=== PATIENT | male | born 1940 | race Caucasian/White ===

== ENCOUNTER 2019-06-23 19:21 | Inpatient (IN) | payer MEDICARE, OTHER ==
[2019-06-23 22:58] VITALS: BP 151/76
[2019-06-23] MEDS ORDERED: Maalox 30 mL Cup PO PRN (23:49)
[2019-06-24] MEDS ORDERED: Magnesium Hydroxide (MOM) 30 mL UDC PO PRN ×2 (11:03→15:31)
[2019-06-24] MEDS ORDERED: Maalox 30 mL Cup PO PRN (11:03)
[2019-06-24] MEDS ORDERED: Potassium Chloride 20 mEq ER Tab PO ONE ×2 (11:39→13:15)
[2019-06-24] MEDS ORDERED: Fleet Enema 135 mL RC PRN ×2 (11:47→15:31)
--- NOTE | 2019-06-24 11:49 | Psychiatric Evaluation ---
DATE OF SERVICE: REASON FOR ADMISSION: The patient was admitted for increased depression with increased aggressive behavior and refusing care. HISTORY OF PRESENT ILLNESS: The patient is a 79-year-old male who appeared to be somewhat poor of a historian. The patient is a resident of the [facility] in [place]. The patient was able to give his name and age; however, the patient was able to give the month and day of his birthday, but not the year. When asked again what is the year of his birthday, the patient stated "I am 79, you can figure it out." When asked why he is here, the patient stated that he does not have any idea why he is here. When asked if he is depressed, the patient stated that he is depressed after he got here. When asked to rate his mood on a 0-10 scale, 0 being normal happy, 10 being very depressed and suicidal and the patient stated "15." When asked again later to rate his mood, the patient gave the same answer. The patient was not able to say why he is depressed. The patient denied any problem at the facility. The patient stated that he would like to go back to where he came from. The patient reported that he is eating and sleeping okay. PAST PSYCHIATRIC HISTORY: History of depression and agitation and being uncooperative with care and treatment. PAST MEDICAL HISTORY: GI bleed, anemia, ulcerative colitis, heart failure, COPD, hyperlipidemia, hypertension, generalized muscle weakness. PAST SURGICAL HISTORY: The patient denied any surgery. ALLERGIES: No known allergy. MEDICATIONS: Currently, the patient is on Sinemet, Wellbutrin 100 mg p.o. daily, Ativan 0.5 mg q. 4 hours p.r.n., Ambien 5 mg p.o. at bedtime p.r.n. SUBSTANCE ABUSE HISTORY: The patient denied any alcohol use, but reported that he smoked for about 30 years. PERSONAL HISTORY: The patient reported that he is still only child. The patient reported that he finished 4 years of college, has a bachelor degree. 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 MENTAL STATUS EXAMINATION: The patient appeared appropriate for stated age. The patient appeared to be somewhat guarded; however, the patient did have some sense of humor. When asked if he has any auditory or visual hallucination, the patient stated all the time and then, the patient smiled. Then, the patient denied any other symptoms. The patient also denied any delusion. Short-term memory appeared to be adequate. The patient was able to repeat the 4 items; however, the patient was unable to recall any of the 4 items after a couple of minutes. The patient was unable to recall any even after given hints. The patient gave concrete interpretation to 2/3 proverbs and stated that he had never heard one of them. Concentration appeared to be adequate; however, when asked the patient to perform serial 3 subtraction taking 3 from 20, the patient stated "I don't know." DIAGNOSTIC IMPRESSION: AXIS I: 1. Alzheimer dementia with depressed mood and behavioral disturbance. 2. Mood disorder, depressed due to medical condition. 3. Major depressive disorder. 4. Impulse control disorder, not otherwise specified. 5. Personality change due to medical condition. PLAN: We will continue the patient on current Wellbutrin and monitor the patient's mood and behavior. Consider increasing Wellbutrin to 300 mg daily and possibly adding Depakote 125 mg q. 12 hours for poor impulse control. We will get psychology consult with Dr. Waldrop. ESTIMATED LENGTH OF STAY: 7-10 days. DISCHARGE CRITERIA: Include improvement of his depressed mood as well as no recurrent aggressive behavior and increased compliance with care and treatment. [facility]# [id number]
[2019-06-24] MEDS ORDERED: Acetaminophen 500 MG TAB PO PRN ×2 (11:53→15:31)
[2019-06-24] MEDS ORDERED: Potassium Chloride 20 mEq ER Tab PO SCH (12:00)
[2019-06-24] MEDS ORDERED: Pantoprazole 40 mg EC Tab PO PRN (15:31)
[2019-06-24] MEDS ORDERED: GLUCAGON HCl 1 MG KIT IM PRN (15:31)
[2019-06-24] MEDS: INSULIN LISPRO SLIDING SCALE 100 UNITS/ML UNIT SUBQ SCH ×2 (16:33→21:49)
[2019-06-25] MEDS: INSULIN LISPRO SLIDING SCALE 100 UNITS/ML UNIT SUBQ SCH ×4 (06:47→21:55)
[2019-06-25] MEDS: Potassium Chloride 10 mEq ER Tab PO SCH (08:50)
[2019-06-25] MEDS: Pantoprazole 40 mg/Packet PO SCH (08:51)
[2019-06-25] MEDS: Multivitamin Tab PO SCH (08:51)
[2019-06-25] MEDS: Aspirin 81mg Chewable Tab PO SCH (08:52)
[2019-06-25] MEDS ORDERED: Aspirin 81mg Chewable Tab PO SCH (09:00)
[2019-06-25] MEDS ORDERED: Multivitamin Tab PO SCH (09:00)
[2019-06-25] MEDS ORDERED: FOLIC ACID PO SCH (09:00)
[2019-06-25] MEDS ORDERED: RIBOFLAVIN PO SCH (09:00)
[2019-06-25] MEDS ORDERED: CYANOCOBALAMIN PO SCH (09:00)
[2019-06-25] MEDS ORDERED: PYRIDOXINE PO SCH (09:00)
[2019-06-25] MEDS ORDERED: CHOLECALCIFEROL PO SCH (09:00)
--- NOTE | 2019-06-25 14:00 | Internal Medicine Prog Note ---
Internal Medicine Subjective - Subjective Patient seen and examined:: with staff, chart reviewed Patient is:: awake, verbal, interactive Per staff patient has:: no adverse event, no episodes of fall, tolerating meds Internal Medicine Objective - Results Recent Labs: Laboratory Last Values POC Glucose 103 MG/DL (70 - 105) 06/25/19 06:44 - Physical Exam Vitals and I&O: Vital Signs Temp 96.5 F 06/25/19 06:39 Pulse 58 06/25/19 06:39 Resp 18 06/25/19 07:32 BP 138/65 06/25/19 08:50 Pulse Ox 94 06/25/19 06:39 Intake & Output 06/24/19 06/25/19 06/25/19 18:59 06:59 18:59 Intake Total 120 120 Output Total 1 Balance 120 119 Intake: Oral 120 120 Output: Urine/Stool Mix 1 Other: # Voids 2 1 # Bowel Movements 0 1 Active Medications: Current Medications Acetaminophen (Tylenol) 650 mg PO Q4H PRN PRN Reason: Pain (Mild 1-3) Stop: 08/23/19 11:02 Acetaminophen (Tylenol Extra Strength) 500 mg PO Q6HR PRN PRN Reason: FEVER Stop: 08/23/19 15:30 Al Hydrox/Mg Hydrox/Simethicone (Maalox) 30 ml PO Q4HR PRN PRN Reason: GI DISTRESS Stop: 08/22/19 23:48 Aspirin (Aspirin Chewable) 81 mg PO DAILY [facility] Stop: 08/24/19 08:59 Last Admin: 06/25/19 08:52 Dose: 81 mg Bisacodyl (Dulcolax 10 Mg Supp) 10 mg RC DAILY PRN PRN Reason: Constipation Stop: 08/23/19 15:30 Bupropion HCl (Wellbutrin Sr) 150 mg PO DAILY [facility]; Protocol Stop: 08/25/19 08:59 Dextrose (Glutose 40%) 18.75 gm PO PRN PRN PRN Reason: Blood Glucose less than 70 Stop: 08/23/19 15:30 Docusate Sodium (Colace) 200 mg PO DAILY [facility] Stop: 08/24/19 08:59 Last Admin: 06/25/19 08:51 Dose: 200 mg Furosemide (Lasix) 40 mg PO DAILY [facility] Stop: 08/24/19 08:59 Last Admin: 06/25/19 08:50 Dose: 40 mg Glucagon (Glucagen) 1 mg IM PRN PRN PRN Reason: Blood Glucose less than 70 Stop: 08/23/19 15:30 Insulin Human Lispro (Humalog Insulin Sliding Scale) 0 units SUBQ ACHS [facility]; Protocol Stop: 08/23/19 16:29 Last Admin: 06/25/19 11:30 Dose: Not Given Lorazepam (Ativan) 0.5 mg PO Q4HR PRN; Protocol PRN Reason: Agitation Stop: 07/23/19 23:48 Magnesium Hydroxide (Milk Of Magnesia) 30 ml PO DAILY PRN PRN Reason: Constipation Stop: 08/23/19 15:30 Miscellaneous (Vit D3/Folic Acid/B2/B6/B12 [Folgard Tablet]) 1,000 unit PO DAILY [facility] Stop: 08/24/19 08:59 Multivitamins/Vitamin C (Theragran) 1 tab PO DAILY [facility] Stop: 08/24/19 08:59 Last Admin: 06/25/19 08:51 Dose: 1 tab Niacin (Vitamin B3) 1,000 mg PO QAM [facility] Stop: 08/24/19 08:59 Last Admin: 06/25/19 08:50 Dose: 1,000 mg Nitroglycerin (Nitrostat) 0.4 mg SL Q5MIN PRN PRN Reason: Chest Pain Stop: 08/23/19 15:30 Pantoprazole Sodium (Protonix) 40 mg PO DAILY [facility] Stop: 08/24/19 08:59 Last Admin: 06/25/19 08:51 Dose: 40 mg Potassium Chloride (Klor-Con) 10 meq PO DAILY [facility] Stop: 08/24/19 08:59 Last Admin: 06/25/19 08:50 Dose: 10 meq Simvastatin (Zocor) 20 mg PO HS [facility]; Protocol Stop: 08/23/19 20:59 Last Admin: 06/24/19 21:08 Dose: 20 mg Sodium Phosphate (Fleet Enema) 135 ml RC PRN PRN PRN Reason: Consipation if Dulcolax ineffe Stop: 08/23/19 15:30 Zolpidem Tartrate (Ambien) 5 mg PO HS PRN PRN Reason: Insomnia Stop: 08/22/19 23:48 General: demented HEENT: NC/AT, PERRLA Neck: Supple, No JVD Lungs: CTAB Cardiovascular: RRR, Normal S1, Normal S2, with murmur Abdomen: soft, globular, positive bowel sound Extremities: excoriation Neurological: no change Internal Medicine Assmt/Plan - Assessment Assessment: history of chf hyperlipidemia gerd - Plan Plan: cont on diuretics monitor lytes, will correct as needed cont on proton pump inhibitor cpm ondina rn Nutritional Asmnt/Malnutr-PDOC - Dietary Evaluation Malnutrition Findings (Please click <Entered> for more info): Nutritional Asmnt/Malnutrition Start: 06/25/19 10: 36 Text: Status: Complete Freq: Protocol: Document 06/25/19 10:36 [email or web address] (Rec: 06/25/19 10:42 [id number] MARTIN- [email or web address]) Nutritional Asmnt/Malnutrition Patient General Information Nutritional Screening Moderate Risk Diagnosis Psychosis Pertinent Medical Hx/Surgical Hx Major depression Ds, dementia, HTN, hyperlipidemia, CT, CAD, CHF, COPD, anemia, ulcerative colitis unspecified rectal bleeding, muscle weakness, difficulty walking, left hand weakness, hx CABG Subjective Information Patient was admitted from [facility] for evaluation related to increased depression, withdrawn, refusal of treatment and care, verbally agressive to staff. Tolerating current diet with adequate intake. Patient asleep in bed at time of visit. Current Diet Order/ Nutrition Support Mechanical soft, 2gm Sodium, Chopped Patient / S.O Not Indicated Pertinent Medications maalox, dulcolax, colace, lasix, glucagon, humalog, MOM, Theragran, Vitamin B3, protonix, klor con, fleet enema Pertinent Labs 06/23 glucose 193 Nutritional Hx/Data Height 1.78 m Height (Calculated Centimeters) 177.8 Current Weight (lbs) 113.398 kg Weight (Calculated Kilograms) 113.4 Weight (Calculated Grams) 455077.1 [place] Body Weight 166 % [place] Body Weight 150 Body Mass Index (BMI) 35.9 Recent Weight Change No Weight Status Obese GI Symptoms GI Symptoms None Last BM 06/24 x 1 Difficult in: None Food Allergies No Cultural/Ethnic/Oriental Orthodox Belief none indicated Usual diet at home unknown Skin Integrity/Comment: area of concern, dry scabs bilateral LE, Mickey 16 Current %PO Good (75-100%) Estimated Nutritional Goals BEE in Kcals: Adj wt of IBW Calories/Kcals/Kg Adj BW 85kg Kcals Calculated ~2537-3457 kcal/day (25-30 kcal/kg) Protein: Adj wt of IBW Protein g/k-1.2 gm/kg Protein Calculated ~85-100gm/day Fluid: ml ~2879-1317 ml/day Nutritional Problem No current Nutrition Prob Problem No nutrition diagnosis at this time Intervention/Recommendation Comments 1. Continue current diet as tolerated by patient. Expected Outcomes/Goals Expected Outcomes/Goals Oral intake >75% of meals, weight stable or trend toward IBW, nutrition related labs WNL F/U LR 07/02
--- NOTE | 2019-06-25 15:24 | Progress Notes ---
DATE: SUBJECTIVE: The patient was resting in bed, appeared to be calm and pleasant. The patient smiled when talked to. The patient reported that he is eating and sleeping okay. The patient stated that he does not want to be out of bed. Encouraged him to get out saying that with getting up and be more active that will help improve his circulation and help with his mood. The patient declined to get up at this time. OBJECTIVE: The patient appeared to be pleasant; however, the patient continued to be withdrawn. The staff reported that the patient has been okay. The patient does not want to be up in the wheelchair, does not want to be active and participate in any activity. Staff reported that the patient has been eating and sleeping okay. ASSESSMENT: 1. Alzheimer's dementia with depressed mood and behavior disturbance. 2. Mood disorder, depressed, due to medical condition. 3. Major depressive disorder. 4. Impulse control disorder, not otherwise specified. 5. Personality change due to medical condition. PLAN: We will discontinue his current Wellbutrin. We will start the patient on Wellbutrin SR 150 mg p.o. q.a.m. and monitor the patient's response to the increased dose of Wellbutrin. JOB# [id number]
--- NOTE | 2019-06-25 15:36 | Consultation ---
DATE OF CONSULTATION: 06/25/2019 REQUESTING PHYSICIAN: Robert Stevenson M.D. TYPE OF CONSULTATION: Psychology. HISTORY OF PRESENT ILLNESS: The patient is a 79-year-old male. The patient is a resident of [facility] in [place]. The patient is being admitted for increased depression and aggressive behavior as well as refusing Care. The following is by record review and by the patient's report. The staff at the patient's facility report that the patient had become more depressed and was verbally aggressive with staff and intermittently refusing care. Therefore, the patient was transferred here for stabilization. Upon interview, the patient denies any problem at his facility. The patient states he wants to return there. He stated appetite and sleep are okay. The patient denied any suicidal ideation, plan or intention at the time of this clinical interview. He admits he's depressed but stated, "maybe, a little". PAST MEDICAL HISTORY: Please see history and physical. PAST PSYCHIATRIC HISTORY: The patient has a history of depression as well as being uncooperative with care. The patient is under the care of a psychiatrist at his facility. Details are unknown regarding previous psychiatric hospitalizations. MEDICATIONS: Please see medication reconciliation. ALLERGIES: No known allergies. SUBSTANCE ABUSE HISTORY: The patient denied any history of alcohol or illicit drug use. The patient stated he used to be a smoker, but quit about 30 years ago. 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 The patient reports that he has no specific evangelical affiliation. The patient stated that he was , but is not in touch with his and has no children. The patient wishes to return to his facility. The patient reports no current legal problems or any history of physical or sexual abuse. MENTAL STATUS EXAMINATION: The patient appears to be his stated age. The patient's attitude is somewhat guarded and disinterested. Eye contact is fair to poor. Speech is delayed, but relevant and coherent. Mood appears to be dysphoric. Affect is constricted. Thought process shows to be somewhat goal oriented. No distractibility or tangentiality is present. The patient's thought process is linear and logical with a normal pattern of association. He denied any auditory or visual hallucinations. He denies any suicidal ideation, plan or intention. The patient's behavior is motivated towards his care. Impulse control is intact. However, the patient has a history of refusing care at his facility. Concentration is fair. The patient was able to sustain focus and attention. The patient was able to repeat 3 items given to him the first time; however, the patient was unable to recall any of the items after several minutes. Memory is impaired for short term dimension. Immediate memory is intact. Long-term memory needs further evaluation. The patient was unable to recall certain milestones, i.e., when he was and the last time he lived with his . The patient did not participate in the interpretation of proverbs and stated that he had not heard of the ones that were given. This was tried a second time. The patient stated he did not know them. Insight is poor. Judgment is compromised. DIAGNOSTIC IMPRESSION AXIS I: 1. History of dementia with depression. 2. Dementia with behavioral disturbance. 3. Mood disorder, depressed due to medical condition. 4. Major depressive disorder. 5. Personality change due to medical condition. TREATMENT PLAN: The patient has been seen by Dr. Stevenson for psychiatric evaluation and for the management of the patient's psychotropic medications. Staff has indicated the patient has poor impulse control. So we will address that issue and provide de-escalation as well as boundary definitions and awareness to assist the patient in increasing his impulse control. We will provide cognitive behavioral therapy to reduce the patient's depression if the patient is able to respond to that type of psychotherapeutic intervention. We will provide coping strategies for phase of life issues. We will provide motivational enhancement for the patient to become compliant and stay compliant with all aspects of his care and treatment. We will follow up in 2-3 days to provide treatment as stated above. DISCHARGE CRITERIA: Includes the patient's increased compliance with care and treatment with no recurrent aggressive behavior. Thank you, Dr. Stevenson for this consult and the opportunity to participate with you in this patient's care. JOB# [id number] JER
[2019-06-26] MEDS: INSULIN LISPRO SLIDING SCALE 100 UNITS/ML UNIT SUBQ SCH ×4 (06:34→20:39)
[2019-06-26] MEDS: Potassium Chloride 10 mEq ER Tab PO SCH (09:21)
[2019-06-26] MEDS: Multivitamin Tab PO SCH (09:24)
[2019-06-26] MEDS: Aspirin 81mg Chewable Tab PO SCH (09:24)
[2019-06-26] MEDS: Pantoprazole 40 mg/Packet PO SCH (09:24)
--- NOTE | 2019-06-26 13:52 | Internal Medicine Prog Note ---
Internal Medicine Subjective - Subjective Patient seen and examined:: with staff, chart reviewed Patient is:: awake, verbal, interactive Per staff patient has:: no adverse event, no episodes of fall, tolerating meds Internal Medicine Objective - Results Recent Labs: Laboratory Last Values POC Glucose 186 MG/DL (70 - 105) H 06/26/19 11:24 - Physical Exam Vitals and I&O: Vital Signs Temp 99.1 F 06/26/19 06:07 Pulse 66 06/26/19 06:07 Resp 18 06/26/19 06:07 BP 132/58 06/26/19 09:21 Pulse Ox 94 06/26/19 06:07 Intake & Output 06/25/19 06/26/19 06/26/19 18:59 06:59 18:59 Intake Total 360 Balance 360 Intake: Oral 360 Other: # Voids 2 # Bowel Movements 1 Active Medications: Current Medications Acetaminophen (Tylenol) 650 mg PO Q4H PRN PRN Reason: Pain (Mild 1-3) Stop: 08/23/19 11:02 Acetaminophen (Tylenol Extra Strength) 500 mg PO Q6HR PRN PRN Reason: FEVER Stop: 08/23/19 15:30 Al Hydrox/Mg Hydrox/Simethicone (Maalox) 30 ml PO Q4HR PRN PRN Reason: GI DISTRESS Stop: 08/22/19 23:48 Aspirin (Aspirin Chewable) 81 mg PO DAILY [facility] Stop: 08/24/19 08:59 Last Admin: 06/26/19 09:24 Dose: 81 mg Bisacodyl (Dulcolax 10 Mg Supp) 10 mg RC DAILY PRN PRN Reason: Constipation Stop: 08/23/19 15:30 Bupropion HCl (Wellbutrin Sr) 150 mg PO DAILY [facility]; Protocol Stop: 08/25/19 08:59 Last Admin: 06/26/19 09:24 Dose: 150 mg Dextrose (Glutose 40%) 18.75 gm PO PRN PRN PRN Reason: Blood Glucose less than 70 Stop: 08/23/19 15:30 Docusate Sodium (Colace) 200 mg PO DAILY [facility] Stop: 08/24/19 08:59 Last Admin: 06/26/19 09:22 Dose: 200 mg Furosemide (Lasix) 40 mg PO DAILY [facility] Stop: 08/24/19 08:59 Last Admin: 06/26/19 09:21 Dose: 40 mg Glucagon (Glucagen) 1 mg IM PRN PRN PRN Reason: Blood Glucose less than 70 Stop: 08/23/19 15:30 Insulin Human Lispro (Humalog Insulin Sliding Scale) 0 units SUBQ ACHS [facility]; Protocol Stop: 08/23/19 16:29 Last Admin: 06/26/19 11:33 Dose: Not Given Lorazepam (Ativan) 0.5 mg PO Q4HR PRN; Protocol PRN Reason: Agitation Stop: 07/23/19 23:48 Magnesium Hydroxide (Milk Of Magnesia) 30 ml PO DAILY PRN PRN Reason: Constipation Stop: 08/23/19 15:30 Multivitamins/Vitamin C (Theragran) 1 tab PO DAILY [facility] Stop: 08/24/19 08:59 Last Admin: 06/26/19 09:24 Dose: 1 tab Niacin (Vitamin B3) 1,000 mg PO QAM [facility] Stop: 08/24/19 08:59 Last Admin: 06/26/19 09:20 Dose: 1,000 mg Nitroglycerin (Nitrostat) 0.4 mg SL Q5MIN PRN PRN Reason: Chest Pain Stop: 08/23/19 15:30 Pantoprazole Sodium (Protonix) 40 mg PO DAILY [facility] Stop: 08/24/19 08:59 Last Admin: 06/26/19 09:24 Dose: 40 mg Potassium Chloride (Klor-Con) 10 meq PO DAILY [facility] Stop: 08/24/19 08:59 Last Admin: 06/26/19 09:21 Dose: 10 meq Simvastatin (Zocor) 20 mg PO HS [facility]; Protocol Stop: 08/23/19 20:59 Last Admin: 06/25/19 21:24 Dose: 20 mg Sodium Phosphate (Fleet Enema) 135 ml RC PRN PRN PRN Reason: Consipation if Dulcolax ineffe Stop: 08/23/19 15:30 Zolpidem Tartrate (Ambien) 5 mg PO HS PRN PRN Reason: Insomnia Stop: 08/22/19 23:48 General: demented HEENT: NC/AT, PERRLA Neck: Supple, No JVD Lungs: CTAB Cardiovascular: RRR, Normal S1, Normal S2, with murmur Abdomen: soft, globular, positive bowel sound Extremities: excoriation Neurological: no change Internal Medicine Assmt/Plan - Assessment Assessment: history of chf hyperlipidemia gerd - Plan Plan: cont on diuretics monitor lytes, will correct as needed cont on proton pump inhibitor cpm ondina rn Nutritional Asmnt/Malnutr-PDOC - Dietary Evaluation Malnutrition Findings (Please click <Entered> for more info): Nutritional Asmnt/Malnutrition Start: 06/25/19 10: 36 Text: Status: Complete Freq: Protocol: Document 06/25/19 10:36 MMULHERN (Rec: 06/25/19 10:42 MMULHERN MARIO FN) Nutritional Asmnt/Malnutrition Patient General Information Nutritional Screening Moderate Risk Diagnosis Psychosis Pertinent Medical Hx/Surgical Hx Major depression Ds, dementia, HTN, hyperlipidemia, [place], CAD, CHF, COPD, anemia, ulcerative colitis unspecified rectal bleeding, muscle weakness, difficulty walking, left hand weakness, hx CABG Subjective Information Patient was admitted from [facility] for evaluation related to increased depression, withdrawn, refusal of treatment and care, verbally agressive to staff. Tolerating current diet with adequate intake. Patient asleep in bed at time of visit. Current Diet Order/ Nutrition Support Mechanical soft, 2gm Sodium, Chopped Patient / S.O Not Indicated Pertinent Medications maalox, dulcolax, colace, lasix, glucagon, humalog, MOM, Theragran, Vitamin B3, protonix, klor con, fleet enema Pertinent Labs 06/23 glucose 193 Nutritional Hx/Data Height 1.78 m Height (Calculated Centimeters) 177.8 Current Weight (lbs) 113.398 kg Weight (Calculated Kilograms) 113.4 Weight (Calculated Grams) 939316.1 [place] Body Weight 166 % [place] Body Weight 150 Body Mass Index (BMI) 35.9 Recent Weight Change No Weight Status Obese GI Symptoms GI Symptoms None Last BM 06/24 x 1 Difficult in: None Food Allergies No Cultural/Ethnic/Church Belief none indicated Usual diet at home unknown Skin Integrity/Comment: area of concern, dry scabs bilateral Mickey LEIGH 16 Current %PO Good (75-100%) Estimated Nutritional Goals BEE in Kcals: Adj wt of IBW Calories/Kcals/Kg Adj BW 85kg Kcals Calculated ~5533-6473 kcal/day (25-30 kcal/kg) Protein: Adj wt of IBW Protein g/k-1.2 gm/kg Protein Calculated ~85-100gm/day Fluid: ml ~4497-5710 ml/day Nutritional Problem No current Nutrition Prob Problem No nutrition diagnosis at this time Intervention/Recommendation Comments 1. Continue current diet as tolerated by patient. Expected Outcomes/Goals Expected Outcomes/Goals Oral intake >75% of meals, weight stable or trend toward IBW, nutrition related labs WNL F/U LR 07/02
--- NOTE | 2019-06-26 18:30 | Progress Notes ---
DATE: SUBJECTIVE: The patient was resting in bed when approached. The patient was pleasant and smiling when talked to. The patient reported that he is doing okay and he ate and slept well. As a matter of fact the patient stated that he slept too much. When asked if he had been up in the wheelchair and be out of his room at all, the patient stated no. The patient stated that he does not want to be up. When asked how he spent his day at the facility before he came here, the patient indicated that he would be in bed as well. When encouraged him to get up to attend activities and to be more active, the patient stated that he would do that. When asked if he would take a shower today, the patient stated no. When asked how often he had taken shower, the patient was unable to give any answer. OBJECTIVE: The patient appeared to be calmer and less depressed this morning. The staff reported that the patient continued to be calm and cooperative with care and treatment. However, the patient had refused to get up in the wheelchair and to participate in any activity. ASSESSMENT: 1. Alzheimer dementia with depression and behavioral disturbance. 2. Mood disorder, depressed due to medical condition. 3. Major depressive disorder. 4. Impulse control disorder, not otherwise specified. 5. Personality change due to medical condition. PLAN: We will continue the patient on Wellbutrin SR 150 mg p.o. q.a.m. We will monitor the patient's response to the medication so far. There was no adverse effect reported. [facility]# [id number]
[2019-06-27] MEDS: INSULIN LISPRO SLIDING SCALE 100 UNITS/ML UNIT SUBQ SCH ×4 (06:42→21:17)
[2019-06-27] MEDS: Potassium Chloride 10 mEq ER Tab PO SCH (08:14)
[2019-06-27] MEDS: Pantoprazole 40 mg/Packet PO SCH (08:14)
[2019-06-27] MEDS: Multivitamin Tab PO SCH (08:14)
[2019-06-27] MEDS: Aspirin 81mg Chewable Tab PO SCH (08:15)
--- NOTE | 2019-06-27 13:51 | Internal Medicine Prog Note ---
Internal Medicine Subjective - Subjective Patient seen and examined:: with staff, chart reviewed Patient is:: awake, verbal, interactive Per staff patient has:: no adverse event, no episodes of fall, tolerating meds Internal Medicine Objective - Results Recent Labs: Laboratory Last Values POC Glucose 182 MG/DL (70 - 105) H 06/26/19 20:13 - Physical Exam Vitals and I&O: Vital Signs Temp 98.1 F 06/27/19 13:43 Pulse 62 06/27/19 13:43 Resp 20 06/27/19 13:43 BP 138/65 06/27/19 13:43 Pulse Ox 96 06/27/19 13:43 Intake & Output 06/26/19 06/27/19 06/27/19 18:59 06:59 18:59 Intake Total 850 240 Balance 850 240 Intake: Oral 850 240 Other: # Voids 4 2 # Bowel Movements 1 Active Medications: Current Medications Acetaminophen (Tylenol) 650 mg PO Q4H PRN PRN Reason: Pain (Mild 1-3) Stop: 08/23/19 11:02 Acetaminophen (Tylenol Extra Strength) 500 mg PO Q6HR PRN PRN Reason: FEVER Stop: 08/23/19 15:30 Al Hydrox/Mg Hydrox/Simethicone (Maalox) 30 ml PO Q4HR PRN PRN Reason: GI DISTRESS Stop: 08/22/19 23:48 Aspirin (Aspirin Chewable) 81 mg PO DAILY [facility] Stop: 08/24/19 08:59 Last Admin: 06/27/19 08:15 Dose: 81 mg Bisacodyl (Dulcolax 10 Mg Supp) 10 mg RC DAILY PRN PRN Reason: Constipation Stop: 08/23/19 15:30 Bupropion HCl (Wellbutrin Sr) 150 mg PO DAILY [facility]; Protocol Stop: 08/25/19 08:59 Last Admin: 06/27/19 08:15 Dose: 150 mg Dextrose (Glutose 40%) 18.75 gm PO PRN PRN PRN Reason: Blood Glucose less than 70 Stop: 08/23/19 15:30 Docusate Sodium (Colace) 200 mg PO DAILY [facility] Stop: 08/24/19 08:59 Last Admin: 06/27/19 08:14 Dose: 200 mg Furosemide (Lasix) 40 mg PO DAILY [facility] Stop: 08/24/19 08:59 Last Admin: 06/27/19 08:15 Dose: Not Given Glucagon (Glucagen) 1 mg IM PRN PRN PRN Reason: Blood Glucose less than 70 Stop: 08/23/19 15:30 Insulin Human Lispro (Humalog Insulin Sliding Scale) 0 units SUBQ ACHS [facility]; Protocol Stop: 08/23/19 16:29 Last Admin: 06/27/19 06:42 Dose: Not Given Lorazepam (Ativan) 0.5 mg PO Q4HR PRN; Protocol PRN Reason: Agitation Stop: 07/23/19 23:48 Magnesium Hydroxide (Milk Of Magnesia) 30 ml PO DAILY PRN PRN Reason: Constipation Stop: 08/23/19 15:30 Multivitamins/Vitamin C (Theragran) 1 tab PO DAILY [facility] Stop: 08/24/19 08:59 Last Admin: 06/27/19 08:14 Dose: 1 tab Niacin (Vitamin B3) 1,000 mg PO QAM [facility] Stop: 08/24/19 08:59 Last Admin: 06/27/19 08:14 Dose: 1,000 mg Nitroglycerin (Nitrostat) 0.4 mg SL Q5MIN PRN PRN Reason: Chest Pain Stop: 08/23/19 15:30 Pantoprazole Sodium (Protonix) 40 mg PO DAILY [facility] Stop: 08/24/19 08:59 Last Admin: 06/27/19 08:14 Dose: 40 mg Potassium Chloride (Klor-Con) 10 meq PO DAILY [facility] Stop: 08/24/19 08:59 Last Admin: 06/27/19 08:14 Dose: 10 meq Simvastatin (Zocor) 20 mg PO HS [facility]; Protocol Stop: 08/23/19 20:59 Last Admin: 06/26/19 20:37 Dose: 20 mg Sodium Phosphate (Fleet Enema) 135 ml RC PRN PRN PRN Reason: Consipation if Dulcolax ineffe Stop: 08/23/19 15:30 Zolpidem Tartrate (Ambien) 5 mg PO HS PRN PRN Reason: Insomnia Stop: 08/22/19 23:48 General: demented HEENT: NC/AT, PERRLA Neck: Supple, No JVD Lungs: CTAB Cardiovascular: RRR, Normal S1, Normal S2, with murmur Abdomen: soft, globular, positive bowel sound Extremities: excoriation Neurological: no change Internal Medicine Assmt/Plan - Assessment Assessment: history of chf hyperlipidemia gerd - Plan Plan: cont on diuretics monitor lytes, will correct as needed cont on proton pump inhibitor cpm ondina rn Nutritional Asmnt/Malnutr-PDOC - Dietary Evaluation Malnutrition Findings (Please click <Entered> for more info): Nutritional Asmnt/Malnutrition Start: 06/25/19 10: 36 Text: Status: Complete Freq: Protocol: Document 06/25/19 10:36 MMULHERN (Rec: 06/25/19 10:42 MMULHERN MARIO FN) Nutritional Asmnt/Malnutrition Patient General Information Nutritional Screening Moderate Risk Diagnosis Psychosis Pertinent Medical Hx/Surgical Hx Major depression Ds, dementia, HTN, hyperlipidemia, HI, CAD, CHF, COPD, anemia, ulcerative colitis unspecified rectal bleeding, muscle weakness, difficulty walking, left hand weakness, hx CABG Subjective Information Patient was admitted from [facility] for evaluation related to increased depression, withdrawn, refusal of treatment and care, verbally agressive to staff. Tolerating current diet with adequate intake. Patient asleep in bed at time of visit. Current Diet Order/ Nutrition Support Mechanical soft, 2gm Sodium, Chopped Patient / S.O Not Indicated Pertinent Medications maalox, dulcolax, colace, lasix, glucagon, humalog, MOM, Theragran, Vitamin B3, protonix, klor con, fleet enema Pertinent Labs 06/23 glucose 193 Nutritional Hx/Data Height 1.78 m Height (Calculated Centimeters) 177.8 Current Weight (lbs) 113.398 kg Weight (Calculated Kilograms) 113.4 Weight (Calculated Grams) 073113.1 [place] Body Weight 166 % [place] Body Weight 150 Body Mass Index (BMI) 35.9 Recent Weight Change No Weight Status Obese GI Symptoms GI Symptoms None Last BM 06/24 x 1 Difficult in: None Food Allergies No Cultural/Ethnic/Congregational Belief none indicated Usual diet at home unknown Skin Integrity/Comment: area of concern, dry scabs bilateral Juan LEIGHen 16 Current %PO Good (75-100%) Estimated Nutritional Goals BEE in Kcals: Adj wt of IBW Calories/Kcals/Kg Adj BW 85kg Kcals Calculated ~5446-1523 kcal/day (25-30 kcal/kg) Protein: Adj wt of IBW Protein g/k-1.2 gm/kg Protein Calculated ~85-100gm/day Fluid: ml ~1202-7493 ml/day Nutritional Problem No current Nutrition Prob Problem No nutrition diagnosis at this time Intervention/Recommendation Comments 1. Continue current diet as tolerated by patient. Expected Outcomes/Goals Expected Outcomes/Goals Oral intake >75% of meals, weight stable or trend toward IBW, nutrition related labs WNL F/U LR 07/02
--- NOTE | 2019-06-27 15:53 | History & Physical ---
ADMIT DATE: 06/23/2019 REASON FOR CONSULTATION: Medical management and clearance. The patient admitted to inpatient unit. HISTORY OF PRESENT ILLNESS: This is a 79-year-old male with history of CAD, status post CABG, CHF, COPD, dementia, GERD, hypertension, hypercholesterolemia, and debilitation, admitted from [facility] secondary to agitated behavior. The patient cleared medically from [facility]. The patient denies any fever, chills, no weight loss or chest pain. PAST MEDICAL HISTORY: As mentioned in the history of present illness. PAST SURGICAL HISTORY: Status post CABG. ALLERGIES: Per chart, no known drug allergies. MEDICATIONS: The patient is on BuSpar, Tylenol, aspirin, Colace, Fleet enema, Lasix, magnesium, multivitamins, pantoprazole, simvastatin, potassium, vitamin D3. FAMILY HISTORY: Noncontributory. SOCIAL HISTORY: He used to smoke a 1 pack per day. Does not drink, has used marijuana. 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 REVIEW OF SYSTEMS: GENERAL: The patient denies any constitutional symptoms. HEENT: No blurred vision. LUNGS: No diagnosis of asthma. The patient has COPD. HEART: The patient with hypertension, CAD. ABDOMEN: No nausea, vomiting or pain. The patient with history of acid reflux. GENITOURINARY: The patient denies increased frequency or dysuria. NEUROLOGIC: No headache, seizure or syncope. PSYCHIATRIC: See above. PHYSICAL EXAMINATION: VITAL SIGNS: Blood pressure 130/68, respirations 20, pulse 76, temperature 98.3. GENERAL: Elderly male, morbidly obese. NECK: Supple. No mass. LUNGS: Equal breath sounds with few rhonchi. HEART: Regular rate and rhythm with systolic ejection murmur. ABDOMEN: Soft, globular. EXTREMITIES: Positive excoriation atrophy, excoriation in bilateral lower extremity. NEUROLOGIC: The patient is alert, please refer to Dr. Stevenson's dictation for assessment. Cranial nerve 1, this was offered, but patient is refused. . Cranial nerve 2, this was offered, but patient is refused. . Cranial nerve 3, this was offered, but patient is refused. . Cranial nerve 4, this was offered, but patient is refused. . Cranial nerve 5, this was offered, but patient is refused. . Cranial nerve 6,this was offered, but patient is refused. . Cranial nerve 7, this was offered, but patient is refused. . Cranial nerve 8, this was offered, but patient is refused. . Cranial nerve 9, this was offered, but patient is refused. . Cranial nerve 10, this was offered, but patient is refused. Cranial nerve 11, this was offered, but patient is refused. Cranial nerve 12, this was offered, but patient is refused. Motor and sensory were equal and symmetrical. Gait is within normal limits. LABORATORY DATA: Reviewed. CBC, CMP within normal limits. ASSESSMENT AND PLAN: Coronary artery disease, history of congestive heart failure, status post coronary artery bypass graft, chronic obstructive pulmonary disease, dementia, gastroesophageal disorder, hypertension, hypercholesterolemia, history of diabetes. We will continue the patient on insulin sliding scale. We will check the patient's hemoglobin A1c. Continue statin medication. Continue on diuretics. We will correct electrolyte abnormalities. We will continue to monitor the patient closely with you. JOB# [id number] JER
--- NOTE | 2019-06-27 21:13 | Progress Notes ---
DATE: 06/27/2019 PSYCHIATRIC PROGRESS NOTE SUBJECTIVE: Staff was spoken to. The patient is interviewed. Mood is noted to be irritable. Affect is constricted. Insight and judgment at this time are noted to be still impaired. Impulse control is noted to be limited. Coping skills are noted to be limited. The patient has been having difficult time to cope with the stress. The patient is still depressed and is not able to contract for safety. The patient is currently on bupropion and has been able to tolerate the medication. ASSESSMENT: The patient is still depressed. PLAN: To continue the patient with the supportive therapy. I encouraged the patient to verbalize the concerns rather than to act out. JOB# [id number]
--- NOTE | 2019-06-27 21:44 | Progress Notes ---
DATE: 06/27/2019 PSYCHOLOGY PROGRESS NOTE SUBJECTIVE: The patient is seen and is interviewed. Case is discussed with staff. The patient presents as disinterested and somewhat dismissive. The patient answered questions only in a yes or no format. The patient states he slept well and that his appetite is okay. The patient denied any depression. The patient asked if he could speak with somebody about discharge. This was deferred to case management as well as the attending/admitting physician. The patient stated he is unwilling to disclose any personal information at this time. OBJECTIVE: Mood is dysphoric. Affect is blunted. Thought process shows to be concrete and superficial. The patient is somewhat dismissive and disinterested in his attitude. The patient denied any hallucinations or delusions. The patient's behavior has been withdrawn and isolative. Staff reports the patient refuses to get up in his wheelchair or to participate in the milieu therapy. ASSESSMENT: The patient has a history of dementia with behavioral disturbance and depression. These conditions persist. Impulse control seems to have somewhat lessened at the time of this visit. PLAN: We provided motivational enhancement for the patient to become compliant with his care and treatment and to participate in the milieu therapy. We provided coping strategies for phase of life issues. We encouraged the patient to begin to establish an emotional rapport with this movie writer to assist the patient in resolving any issues that are interfering with his ability to follow-through with treatment and to apply coping mechanisms at his placement. We will follow up in 2-3 days to continue the present treatment if the patient remains on the unit and is able to demonstrate the capacity and willingness to participate and benefit from psychology services. JOB# [id number] JER
[2019-06-28] MEDS: INSULIN LISPRO SLIDING SCALE 100 UNITS/ML UNIT SUBQ SCH ×4 (06:32→21:16)
[2019-06-28] MEDS: Pantoprazole 40 mg/Packet PO SCH (08:17)
[2019-06-28] MEDS: Potassium Chloride 10 mEq ER Tab PO SCH (08:18)
[2019-06-28] MEDS: Multivitamin Tab PO SCH (08:18)
[2019-06-28] MEDS: Aspirin 81mg Chewable Tab PO SCH (08:20)
--- NOTE | 2019-06-28 12:37 | Internal Medicine Prog Note ---
Internal Medicine Subjective - Subjective Patient seen and examined:: with staff, chart reviewed Patient is:: awake, verbal, interactive Per staff patient has:: no adverse event, no episodes of fall, tolerating meds Internal Medicine Objective - Results Recent Labs: Laboratory Last Values POC Glucose 182 MG/DL (70 - 105) H 06/26/19 20:13 - Physical Exam Vitals and I&O: Vital Signs Temp 97.3 F 06/28/19 06:04 Pulse 69 06/28/19 06:04 Resp 18 06/28/19 06:04 BP 130/52 06/28/19 08:19 Pulse Ox 96 06/28/19 06:04 Intake & Output 06/27/19 06/28/19 06/28/19 18:59 06:59 18:59 Intake Total 240 Balance 240 Intake: Oral 240 Other: # Voids 3 2 # Bowel Movements 2 Active Medications: Current Medications Acetaminophen (Tylenol) 650 mg PO Q4H PRN PRN Reason: Pain (Mild 1-3) Stop: 08/23/19 11:02 Acetaminophen (Tylenol Extra Strength) 500 mg PO Q6HR PRN PRN Reason: FEVER Stop: 08/23/19 15:30 Al Hydrox/Mg Hydrox/Simethicone (Maalox) 30 ml PO Q4HR PRN PRN Reason: GI DISTRESS Stop: 08/22/19 23:48 Aspirin (Aspirin Chewable) 81 mg PO DAILY [facility] Stop: 08/24/19 08:59 Last Admin: 06/28/19 08:20 Dose: 81 mg Bisacodyl (Dulcolax 10 Mg Supp) 10 mg RC DAILY PRN PRN Reason: Constipation Stop: 08/23/19 15:30 Bupropion HCl (Wellbutrin Sr) 150 mg PO DAILY [facility]; Protocol Stop: 08/25/19 08:59 Last Admin: 06/28/19 08:17 Dose: 150 mg Dextrose (Glutose 40%) 18.75 gm PO PRN PRN PRN Reason: Blood Glucose less than 70 Stop: 08/23/19 15:30 Docusate Sodium (Colace) 200 mg PO DAILY [facility] Stop: 08/24/19 08:59 Last Admin: 06/28/19 08:18 Dose: 200 mg Furosemide (Lasix) 40 mg PO DAILY [facility] Stop: 08/24/19 08:59 Last Admin: 06/28/19 08:19 Dose: Not Given Glucagon (Glucagen) 1 mg IM PRN PRN PRN Reason: Blood Glucose less than 70 Stop: 08/23/19 15:30 Insulin Human Lispro (Humalog Insulin Sliding Scale) 0 units SUBQ ACHS [facility]; Protocol Stop: 08/23/19 16:29 Last Admin: 06/28/19 06:32 Dose: Not Given Lorazepam (Ativan) 0.5 mg PO Q4HR PRN; Protocol PRN Reason: Agitation Stop: 07/23/19 23:48 Magnesium Hydroxide (Milk Of Magnesia) 30 ml PO DAILY PRN PRN Reason: Constipation Stop: 08/23/19 15:30 Multivitamins/Vitamin C (Theragran) 1 tab PO DAILY [facility] Stop: 08/24/19 08:59 Last Admin: 06/28/19 08:18 Dose: 1 tab Niacin (Vitamin B3) 1,000 mg PO QAM [facility] Stop: 08/24/19 08:59 Last Admin: 06/28/19 08:17 Dose: 1,000 mg Nitroglycerin (Nitrostat) 0.4 mg SL Q5MIN PRN PRN Reason: Chest Pain Stop: 08/23/19 15:30 Pantoprazole Sodium (Protonix) 40 mg PO DAILY [facility] Stop: 08/24/19 08:59 Last Admin: 06/28/19 08:17 Dose: 40 mg Potassium Chloride (Klor-Con) 10 meq PO DAILY [facility] Stop: 08/24/19 08:59 Last Admin: 06/28/19 08:18 Dose: 10 meq Simvastatin (Zocor) 20 mg PO HS [facility]; Protocol Stop: 08/23/19 20:59 Last Admin: 06/27/19 21:18 Dose: 20 mg Sodium Phosphate (Fleet Enema) 135 ml RC PRN PRN PRN Reason: Consipation if Dulcolax ineffe Stop: 08/23/19 15:30 Zolpidem Tartrate (Ambien) 5 mg PO HS PRN PRN Reason: Insomnia Stop: 08/22/19 23:48 Last Admin: 06/27/19 21:18 Dose: 5 mg General: demented HEENT: NC/AT, PERRLA Neck: Supple, No JVD Lungs: CTAB Cardiovascular: RRR, Normal S1, Normal S2, with murmur Abdomen: soft, globular, positive bowel sound Extremities: excoriation Neurological: no change Internal Medicine Assmt/Plan - Assessment Assessment: ASSESSMENT AND PLAN: Coronary artery disease, history of congestive heart failure, status post coronary artery bypass graft, chronic obstructive pulmonary disease, dementia, gastroesophageal disorder, hypertension, hypercholesterolemia, history of diabetes. - Plan Plan: plan: cont on diuretics monitor lytes, will correct as needed cont on proton pump inhibitor cpm ondina rn Nutritional Asmnt/Malnutr-PDOC - Dietary Evaluation Malnutrition Findings (Please click <Entered> for more info): Nutritional Asmnt/Malnutrition Start: 06/25/19 10: 36 Text: Status: Complete Freq: Protocol: Document 06/25/19 10:36 [email or web address] (Rec: 06/25/19 10:42 MMULHERN MARIO- [email or web address]) Nutritional Asmnt/Malnutrition Patient General Information Nutritional Screening Moderate Risk Diagnosis Psychosis Pertinent Medical Hx/Surgical Hx Major depression Ds, dementia, HTN, hyperlipidemia, VT, CAD, CHF, COPD, anemia, ulcerative colitis unspecified rectal bleeding, muscle weakness, difficulty walking, left hand weakness, hx CABG Subjective Information Patient was admitted from [facility] for evaluation related to increased depression, withdrawn, refusal of treatment and care, verbally agressive to staff. Tolerating current diet with adequate intake. Patient asleep in bed at time of visit. Current Diet Order/ Nutrition Support Mechanical soft, 2gm Sodium, Chopped Patient / S.O Not Indicated Pertinent Medications maalox, dulcolax, colace, lasix, glucagon, humalog, MOM, Theragran, Vitamin B3, protonix, klor con, fleet enema Pertinent Labs 06/23 glucose 193 Nutritional Hx/Data Height 1.78 m Height (Calculated Centimeters) 177.8 Current Weight (lbs) 113.398 kg Weight (Calculated Kilograms) 113.4 Weight (Calculated Grams) 161906.1 [place] Body Weight 166 % [place] Body Weight 150 Body Mass Index (BMI) 35.9 Recent Weight Change No Weight Status Obese GI Symptoms GI Symptoms None Last BM 06/24 x 1 Difficult in: None Food Allergies No Cultural/Ethnic/Orthodoxy Belief none indicated Usual diet at home unknown Skin Integrity/Comment: area of concern, dry scabs bilateral Juan LEIGHen 16 Current %PO Good (75-100%) Estimated Nutritional Goals BEE in Kcals: Adj wt of IBW Calories/Kcals/Kg Adj BW 85kg Kcals Calculated ~2605-8974 kcal/day (25-30 kcal/kg) Protein: Adj wt of IBW Protein g/k-1.2 gm/kg Protein Calculated ~85-100gm/day Fluid: ml ~2215-7152 ml/day Nutritional Problem No current Nutrition Prob Problem No nutrition diagnosis at this time Intervention/Recommendation Comments 1. Continue current diet as tolerated by patient. Expected Outcomes/Goals Expected Outcomes/Goals Oral intake >75% of meals, weight stable or trend toward IBW, nutrition related labs WNL F/U LR 07/02
--- NOTE | 2019-06-29 03:44 | Progress Notes ---
DATE: 06/28/2019 PSYCHIATRIC PROGRESS NOTE SUBJECTIVE: Staff was spoken to. The patient is interviewed. Mood is noted to be irritable. Affect is constricted. The patient is isolative and withdrawn. Insight and judgment are noted to be still impaired. Impulse control is noted to be limited. The patient is currently on Wellbutrin and has been able to tolerate the medications. No side effects to the medications are noted. ASSESSMENT: The patient is still psychotic. PLAN: To continue the patient with the supportive therapy, encouraged the patient to verbalize the concerns rather than to act out. JOB# [id number]
[2019-06-29] MEDS: INSULIN LISPRO SLIDING SCALE 100 UNITS/ML UNIT SUBQ SCH ×4 (06:35→21:19)
[2019-06-29] MEDS: Aspirin 81mg Chewable Tab PO SCH (08:30)
[2019-06-29] MEDS: Multivitamin Tab PO SCH (08:31)
[2019-06-29] MEDS: Potassium Chloride 10 mEq ER Tab PO SCH (08:32)
[2019-06-29] MEDS: Pantoprazole 40 mg/Packet PO SCH (08:32)
--- NOTE | 2019-06-29 12:51 | Internal Medicine Prog Note ---
Internal Medicine Subjective - Subjective Patient seen and examined:: with staff, chart reviewed Patient is:: awake, verbal, interactive Per staff patient has:: no adverse event, no episodes of fall, tolerating meds Internal Medicine Objective - Results Recent Labs: Laboratory Last Values POC Glucose 177 MG/DL (70 - 105) H 06/28/19 21:08 - Physical Exam Vitals and I&O: Vital Signs Temp 98 F 06/29/19 05:32 Pulse 63 06/29/19 05:32 Resp 20 06/29/19 05:32 BP 134/61 06/29/19 08:31 Pulse Ox 96 06/29/19 05:32 Intake & Output 06/28/19 06/29/19 06/29/19 18:59 06:59 18:59 Intake Total 1200 Balance 1200 Intake: Oral 1200 Other: # Voids 4 3 # Bowel Movements 2 1 Active Medications: Current Medications Acetaminophen (Tylenol) 650 mg PO Q4H PRN PRN Reason: Pain (Mild 1-3) Stop: 08/23/19 11:02 Acetaminophen (Tylenol Extra Strength) 500 mg PO Q6HR PRN PRN Reason: FEVER T ABOVE 100.4F Stop: 08/23/19 15:30 Al Hydrox/Mg Hydrox/Simethicone (Maalox) 30 ml PO Q4HR PRN PRN Reason: GI DISTRESS Stop: 08/22/19 23:48 Aspirin (Aspirin Chewable) 81 mg PO DAILY [facility] Stop: 08/24/19 08:59 Last Admin: 06/29/19 08:30 Dose: 81 mg Bisacodyl (Dulcolax 10 Mg Supp) 10 mg RC DAILY PRN PRN Reason: IF MOM INEFFECTIVE Stop: 08/23/19 15:30 Bupropion HCl (Wellbutrin Sr) 150 mg PO DAILY [facility]; Protocol Stop: 08/25/19 08:59 Last Admin: 06/29/19 08:30 Dose: 150 mg Dextrose (Glutose 40%) 18.75 gm PO PRN PRN PRN Reason: Blood Glucose less than 70 Stop: 08/23/19 15:30 Docusate Sodium (Colace) 200 mg PO DAILY [facility] Stop: 08/24/19 08:59 Last Admin: 06/29/19 08:34 Dose: 200 mg Furosemide (Lasix) 40 mg PO DAILY [facility] Stop: 08/24/19 08:59 Last Admin: 06/29/19 08:31 Dose: 40 mg Glucagon (Glucagen) 1 mg IM PRN PRN PRN Reason: Blood Glucose less than 70 Stop: 08/23/19 15:30 Insulin Human Lispro (Humalog Insulin Sliding Scale) 0 units SUBQ ACHS [facility]; Protocol Stop: 08/23/19 16:29 Last Admin: 06/29/19 11:50 Dose: Not Given Lorazepam (Ativan) 0.5 mg PO Q4HR PRN; Protocol PRN Reason: Agitation Stop: 07/23/19 23:48 Magnesium Hydroxide (Milk Of Magnesia) 30 ml PO DAILY PRN PRN Reason: Constipation Stop: 08/23/19 15:30 Multivitamins/Vitamin C (Theragran) 1 tab PO DAILY [facility] Stop: 08/24/19 08:59 Last Admin: 06/29/19 08:31 Dose: 1 tab Niacin (Vitamin B3) 1,000 mg PO QAM [facility] Stop: 08/24/19 08:59 Last Admin: 06/29/19 08:32 Dose: 1,000 mg Nitroglycerin (Nitrostat) 0.4 mg SL Q5MIN PRN PRN Reason: Chest Pain Stop: 08/23/19 15:30 Pantoprazole Sodium (Protonix) 40 mg PO DAILY [facility] Stop: 08/24/19 08:59 Last Admin: 06/29/19 08:32 Dose: 40 mg Potassium Chloride (Klor-Con) 10 meq PO DAILY [facility] Stop: 08/24/19 08:59 Last Admin: 06/29/19 08:32 Dose: 10 meq Simvastatin (Zocor) 20 mg PO HS [facility]; Protocol Stop: 08/23/19 20:59 Last Admin: 06/28/19 20:59 Dose: 20 mg Sodium Phosphate (Fleet Enema) 135 ml RC PRN PRN PRN Reason: if Dulcolax ineffective Stop: 08/23/19 15:30 Zolpidem Tartrate (Ambien) 5 mg PO HS PRN PRN Reason: Insomnia Stop: 08/22/19 23:48 Last Admin: 06/28/19 21:00 Dose: 5 mg General: demented HEENT: NC/AT, PERRLA Neck: Supple, No JVD Lungs: CTAB Cardiovascular: RRR, Normal S1, Normal S2, with murmur Abdomen: soft, globular, positive bowel sound Extremities: excoriation Neurological: no change Internal Medicine Assmt/Plan - Assessment Assessment: ASSESSMENT AND PLAN: Coronary artery disease, history of congestive heart failure, status post coronary artery bypass graft, chronic obstructive pulmonary disease, dementia, gastroesophageal disorder, hypertension, hypercholesterolemia, history of diabetes. - Plan Plan: plan: cont on diuretics monitor lytes, will correct as needed cont on proton pump inhibitor cpm ondina rn Nutritional Asmnt/Malnutr-PDOC - Dietary Evaluation Malnutrition Findings (Please click <Entered> for more info): Nutritional Asmnt/Malnutrition Start: 06/25/19 10: 36 Text: Status: Complete Freq: Protocol: Document 06/25/19 10:36 [email or web address] (Rec: 06/25/19 10:42 MMULHERN MARIO- FNS1) Nutritional Asmnt/Malnutrition Patient General Information Nutritional Screening Moderate Risk Diagnosis Psychosis Pertinent Medical Hx/Surgical Hx Major depression Ds, dementia, HTN, hyperlipidemia, [place], CAD, CHF, COPD, anemia, ulcerative colitis unspecified rectal bleeding, muscle weakness, difficulty walking, left hand weakness, hx CABG Subjective Information Patient was admitted from [facility] for evaluation related to increased depression, withdrawn, refusal of treatment and care, verbally agressive to staff. Tolerating current diet with adequate intake. Patient asleep in bed at time of visit. Current Diet Order/ Nutrition Support Mechanical soft, 2gm Sodium, Chopped Patient / S.O Not Indicated Pertinent Medications maalox, dulcolax, colace, lasix, glucagon, humalog, MOM, Theragran, Vitamin B3, protonix, klor con, fleet enema Pertinent Labs 06/23 glucose 193 Nutritional Hx/Data Height 1.78 m Height (Calculated Centimeters) 177.8 Current Weight (lbs) 113.398 kg Weight (Calculated Kilograms) 113.4 Weight (Calculated Grams) 002845.1 [place] Body Weight 166 % [place] Body Weight 150 Body Mass Index (BMI) 35.9 Recent Weight Change No Weight Status Obese GI Symptoms GI Symptoms None Last BM 06/24 x 1 Difficult in: None Food Allergies No Cultural/Ethnic/Mosque Belief none indicated Usual diet at home unknown Skin Integrity/Comment: area of concern, dry scabs bilateral REESE, Mickey 16 Current %PO Good (75-100%) Estimated Nutritional Goals BEE in Kcals: Adj wt of IBW Calories/Kcals/Kg Adj BW 85kg Kcals Calculated ~2187-9360 kcal/day (25-30 kcal/kg) Protein: Adj wt of IBW Protein g/k-1.2 gm/kg Protein Calculated ~85-100gm/day Fluid: ml ~0002-9550 ml/day Nutritional Problem No current Nutrition Prob Problem No nutrition diagnosis at this time Intervention/Recommendation Comments 1. Continue current diet as tolerated by patient. Expected Outcomes/Goals Expected Outcomes/Goals Oral intake >75% of meals, weight stable or trend toward IBW, nutrition related labs WNL F/U LR 07/02
--- NOTE | 2019-06-30 01:32 | Progress Notes ---
DATE: 06/29/2019 PSYCHIATRIC PROGRESS NOTE SUBJECTIVE: Staff was spoken to. The patient is interviewed. Mood is noted to be depressed. Affect is constricted. The patient is isolative and withdrawn. Insight and judgment are noted to be still impaired. Impulse control is noted to be limited. The patient has been having difficult time to cope with the stress. The patient is currently on Wellbutrin and has been able to tolerate. PLAN: To continue the patient with the supportive therapy and followup. JOB# [id number]
[2019-06-30] MEDS: INSULIN LISPRO SLIDING SCALE 100 UNITS/ML UNIT SUBQ SCH ×4 (06:32→20:22)
[2019-06-30] MEDS: Potassium Chloride 10 mEq ER Tab PO SCH (08:27)
[2019-06-30] MEDS: Multivitamin Tab PO SCH (08:27)
[2019-06-30] MEDS: Pantoprazole 40 mg/Packet PO SCH (08:28)
[2019-06-30] MEDS: Aspirin 81mg Chewable Tab PO SCH (08:28)
--- NOTE | 2019-06-30 10:36 | Progress Notes ---
DATE: 06/29/2019 PSYCHOLOGY PROGRESS NOTE SUBJECTIVE: The patient is seen and is interviewed. Case is discussed with staff. The patient is lying in bed and seems a little more friendly this visit. The patient responded minimally to the clinical questions with long pauses. The patient is presenting with noticeable cognitive delays and deficits, i.e., cognitive processing with poor ability to sustain focus and attention. Staff reports the patient continues to isolate and be withdrawn; however, the patient did ask questions about how to get along with the staff and others at his placement. This information was provided with respect to coping strategies. OBJECTIVE: Mood is depressed. Affect is constricted. Thought process shows to be confused and concrete with apparent cognitive delays. The patient denied any hallucinations or delusions. The patient's behavior is withdrawn and isolative , but is compliant with medication. ASSESSMENT: The patient's depression persists with poor remotivation. PLAN: We will continue to provide remotivation for the patient to become compliant and stay compliant with his care and treatment. We provided insight-oriented therapy along with reflective listening to encourage the patient to develop a level of emotional rapport with this director underwriter sales to accept coping strategies for phase of life issues that are being offered in his treatment. We will continue to encourage the patient to participate in milieu therapy. We will follow up in 2-3 days if the patient remains on the unit. JOB# [id number] JER
--- NOTE | 2019-06-30 12:55 | Internal Medicine Prog Note ---
Internal Medicine Subjective - Subjective Patient seen and examined:: with staff, chart reviewed, other (in bed) Patient is:: awake, verbal, interactive Per staff patient has:: no adverse event, no episodes of fall, tolerating meds Internal Medicine Objective - Results Recent Labs: Laboratory Last Values POC Glucose 161 MG/DL (70 - 105) H 06/30/19 06:19 - Physical Exam Vitals and I&O: Vital Signs Temp 97.3 F 06/30/19 05:22 Pulse 67 06/30/19 05:22 Resp 20 06/30/19 05:22 BP 132/58 06/30/19 08:26 Pulse Ox 99 06/30/19 05:22 Intake & Output 06/29/19 06/30/19 06/30/19 18:59 06:59 18:59 Intake Total 240 Balance 240 Intake: Oral 240 Other: # Voids 2 # Bowel Movements 1 Active Medications: Current Medications Acetaminophen (Tylenol) 650 mg PO Q4H PRN PRN Reason: Pain (Mild 1-3) Stop: 08/23/19 11:02 Acetaminophen (Tylenol Extra Strength) 500 mg PO Q6HR PRN PRN Reason: FEVER T ABOVE 100.4F Stop: 08/23/19 15:30 Al Hydrox/Mg Hydrox/Simethicone (Maalox) 30 ml PO Q4HR PRN PRN Reason: GI DISTRESS Stop: 08/22/19 23:48 Aspirin (Aspirin Chewable) 81 mg PO DAILY [facility] Stop: 08/24/19 08:59 Last Admin: 06/30/19 08:28 Dose: 81 mg Bisacodyl (Dulcolax 10 Mg Supp) 10 mg RC DAILY PRN PRN Reason: IF MOM INEFFECTIVE Stop: 08/23/19 15:30 Bupropion HCl (Wellbutrin Sr) 150 mg PO DAILY [facility]; Protocol Stop: 08/25/19 08:59 Last Admin: 06/30/19 08:27 Dose: 150 mg Dextrose (Glutose 40%) 18.75 gm PO PRN PRN PRN Reason: Blood Glucose less than 70 Stop: 08/23/19 15:30 Docusate Sodium (Colace) 200 mg PO DAILY [facility] Stop: 08/24/19 08:59 Last Admin: 06/30/19 08:27 Dose: 200 mg Furosemide (Lasix) 40 mg PO DAILY [facility] Stop: 08/24/19 08:59 Last Admin: 06/30/19 08:26 Dose: 40 mg Glucagon (Glucagen) 1 mg IM PRN PRN PRN Reason: Blood Glucose less than 70 Stop: 08/23/19 15:30 Insulin Human Lispro (Humalog Insulin Sliding Scale) 0 units SUBQ ACHS [facility]; Protocol Stop: 08/23/19 16:29 Last Admin: 06/30/19 12:00 Dose: Not Given Lorazepam (Ativan) 0.5 mg PO Q4HR PRN; Protocol PRN Reason: Agitation Stop: 07/23/19 23:48 Magnesium Hydroxide (Milk Of Magnesia) 30 ml PO DAILY PRN PRN Reason: Constipation Stop: 08/23/19 15:30 Multivitamins/Vitamin C (Theragran) 1 tab PO DAILY [facility] Stop: 08/24/19 08:59 Last Admin: 06/30/19 08:27 Dose: 1 tab Niacin (Vitamin B3) 1,000 mg PO QAM [facility] Stop: 08/24/19 08:59 Last Admin: 06/30/19 08:28 Dose: 1,000 mg Nitroglycerin (Nitrostat) 0.4 mg SL Q5MIN PRN PRN Reason: Chest Pain Stop: 08/23/19 15:30 Pantoprazole Sodium (Protonix) 40 mg PO DAILY [facility] Stop: 08/24/19 08:59 Last Admin: 06/30/19 08:28 Dose: 40 mg Potassium Chloride (Klor-Con) 10 meq PO DAILY [facility] Stop: 08/24/19 08:59 Last Admin: 06/30/19 08:27 Dose: 10 meq Simvastatin (Zocor) 20 mg PO HS [facility]; Protocol Stop: 08/23/19 20:59 Last Admin: 06/29/19 21:12 Dose: 20 mg Sodium Phosphate (Fleet Enema) 135 ml RC PRN PRN PRN Reason: if Dulcolax ineffective Stop: 08/23/19 15:30 Zolpidem Tartrate (Ambien) 5 mg PO HS PRN PRN Reason: Insomnia Stop: 08/22/19 23:48 Last Admin: 06/29/19 21:12 Dose: 5 mg General: demented HEENT: NC/AT, PERRLA Neck: Supple, No JVD Lungs: CTAB Cardiovascular: RRR, Normal S1, Normal S2, with murmur Abdomen: soft, globular, positive bowel sound Extremities: excoriation Neurological: no change Internal Medicine Assmt/Plan - Assessment Assessment: ASSESSMENT AND PLAN: Coronary artery disease, history of congestive heart failure, status post coronary artery bypass graft, chronic obstructive pulmonary disease, dementia, gastroesophageal disorder, hypertension, hypercholesterolemia, history of diabetes. - Plan Plan: plan: cont on diuretics monitor lytes, will correct as needed cont on proton pump inhibitor cpm ondina rn Nutritional Asmnt/Malnutr-PDOC - Dietary Evaluation Malnutrition Findings (Please click <Entered> for more info): Nutritional Asmnt/Malnutrition Start: 06/25/19 10: 36 Text: Status: Complete Freq: Protocol: Document 06/25/19 10:36 [id number] (Rec: 06/25/19 10:42 MMULHERN MARIO- FNS1) Nutritional Asmnt/Malnutrition Patient General Information Nutritional Screening Moderate Risk Diagnosis Psychosis Pertinent Medical Hx/Surgical Hx Major depression Ds, dementia, HTN, hyperlipidemia, [place], CAD, CHF, COPD, anemia, ulcerative colitis unspecified rectal bleeding, muscle weakness, difficulty walking, left hand weakness, hx CABG Subjective Information Patient was admitted from [facility] for evaluation related to increased depression, withdrawn, refusal of treatment and care, verbally agressive to staff. Tolerating current diet with adequate intake. Patient asleep in bed at time of visit. Current Diet Order/ Nutrition Support Mechanical soft, 2gm Sodium, Chopped Patient / S.O Not Indicated Pertinent Medications maalox, dulcolax, colace, lasix, glucagon, humalog, MOM, Theragran, Vitamin B3, protonix, klor con, fleet enema Pertinent Labs 06/23 glucose 193 Nutritional Hx/Data Height 1.78 m Height (Calculated Centimeters) 177.8 Current Weight (lbs) 113.398 kg Weight (Calculated Kilograms) 113.4 Weight (Calculated Grams) 543994.1 [place] Body Weight 166 % [place] Body Weight 150 Body Mass Index (BMI) 35.9 Recent Weight Change No Weight Status Obese GI Symptoms GI Symptoms None Last BM 06/24 x 1 Difficult in: None Food Allergies No Cultural/Ethnic/Congregational Belief none indicated Usual diet at home unknown Skin Integrity/Comment: area of concern, dry scabs bilateral LE Mickey 16 Current %PO Good (75-100%) Estimated Nutritional Goals BEE in Kcals: Adj wt of IBW Calories/Kcals/Kg Adj BW 85kg Kcals Calculated ~0550-7594 kcal/day (25-30 kcal/kg) Protein: Adj wt of IBW Protein g/k-1.2 gm/kg Protein Calculated ~85-100gm/day Fluid: ml ~2404-7335 ml/day Nutritional Problem No current Nutrition Prob Problem No nutrition diagnosis at this time Intervention/Recommendation Comments 1. Continue current diet as tolerated by patient. Expected Outcomes/Goals Expected Outcomes/Goals Oral intake >75% of meals, weight stable or trend toward IBW, nutrition related labs WNL F/U LR 07/02
--- NOTE | 2019-06-30 21:59 | Progress Notes ---
DATE: 06/30/2019 PSYCHIATRIC PROGRESS NOTE SUBJECTIVE: Staff was spoken to. The patient is interviewed. Mood is noted to be depressed. Affect is constricted. Coping skills are noted to be still poor. Sleep and appetite are noted to be improving. The patient is currently on Wellbutrin and has been able to tolerate the medications. No side effects to the medications are noted. ASSESSMENT: The patient is still depressed. PLAN: To continue the patient with the supportive therapy and followup. JOB# [id number]
[2019-07-01] MEDS: INSULIN LISPRO SLIDING SCALE 100 UNITS/ML UNIT SUBQ SCH ×4 (06:30→20:55)
[2019-07-01] MEDS: Potassium Chloride 10 mEq ER Tab PO SCH (08:54)
[2019-07-01] MEDS: Pantoprazole 40 mg/Packet PO SCH (08:54)
[2019-07-01] MEDS: Multivitamin Tab PO SCH (08:54)
[2019-07-01] MEDS: Aspirin 81mg Chewable Tab PO SCH (08:56)
--- NOTE | 2019-07-01 12:42 | Internal Medicine Prog Note ---
Internal Medicine Subjective - Subjective Patient seen and examined:: with staff, chart reviewed Patient is:: awake, verbal, interactive Per staff patient has:: no adverse event, no episodes of fall, tolerating meds Internal Medicine Objective - Results Recent Labs: Laboratory Last Values POC Glucose 141 MG/DL (70 - 105) H 07/01/19 05:58 - Physical Exam Vitals and I&O: Vital Signs Temp 97.4 F 07/01/19 06:12 Pulse 64 07/01/19 06:12 Resp 18 07/01/19 08:00 BP 126/52 07/01/19 08:54 Pulse Ox 98 07/01/19 06:12 Intake & Output 06/30/19 07/01/19 07/01/19 18:59 06:59 18:59 Intake Total 240 Output Total 1 Balance 239 Intake: Oral 240 Output: Urine/Stool Mix 1 Other: # Voids 1 # Bowel Movements 1 Active Medications: Current Medications Acetaminophen (Tylenol) 650 mg PO Q4H PRN PRN Reason: Pain (Mild 1-3) Stop: 08/23/19 11:02 Acetaminophen (Tylenol Extra Strength) 500 mg PO Q6HR PRN PRN Reason: FEVER T ABOVE 100.4F Stop: 08/23/19 15:30 Al Hydrox/Mg Hydrox/Simethicone (Maalox) 30 ml PO Q4HR PRN PRN Reason: GI DISTRESS Stop: 08/22/19 23:48 Aspirin (Aspirin Chewable) 81 mg PO DAILY [facility] Stop: 08/24/19 08:59 Last Admin: 07/01/19 08:56 Dose: 81 mg Bisacodyl (Dulcolax 10 Mg Supp) 10 mg RC DAILY PRN PRN Reason: IF MOM INEFFECTIVE Stop: 08/23/19 15:30 Bupropion HCl (Wellbutrin Sr) 150 mg PO DAILY [facility]; Protocol Stop: 08/25/19 08:59 Last Admin: 07/01/19 08:54 Dose: 150 mg Dextrose (Glutose 40%) 18.75 gm PO PRN PRN PRN Reason: Blood Glucose less than 70 Stop: 08/23/19 15:30 Docusate Sodium (Colace) 200 mg PO DAILY [facility] Stop: 08/24/19 08:59 Last Admin: 07/01/19 08:54 Dose: 200 mg Furosemide (Lasix) 40 mg PO DAILY [facility] Stop: 08/24/19 08:59 Last Admin: 07/01/19 08:54 Dose: 40 mg Glucagon (Glucagen) 1 mg IM PRN PRN PRN Reason: Blood Glucose less than 70 Stop: 08/23/19 15:30 Insulin Human Lispro (Humalog Insulin Sliding Scale) 0 units SUBQ ACHS [facility]; Protocol Stop: 08/23/19 16:29 Last Admin: 07/01/19 11:48 Dose: Not Given Lorazepam (Ativan) 0.5 mg PO Q4HR PRN; Protocol PRN Reason: Agitation Stop: 07/23/19 23:48 Magnesium Hydroxide (Milk Of Magnesia) 30 ml PO DAILY PRN PRN Reason: Constipation Stop: 08/23/19 15:30 Multivitamins/Vitamin C (Theragran) 1 tab PO DAILY [facility] Stop: 08/24/19 08:59 Last Admin: 07/01/19 08:54 Dose: 1 tab Niacin (Vitamin B3) 1,000 mg PO QAM [facility] Stop: 08/24/19 08:59 Last Admin: 07/01/19 08:54 Dose: 1,000 mg Nitroglycerin (Nitrostat) 0.4 mg SL Q5MIN PRN PRN Reason: Chest Pain Stop: 08/23/19 15:30 Pantoprazole Sodium (Protonix) 40 mg PO DAILY [facility] Stop: 08/24/19 08:59 Last Admin: 07/01/19 08:54 Dose: 40 mg Potassium Chloride (Klor-Con) 10 meq PO DAILY [facility] Stop: 08/24/19 08:59 Last Admin: 07/01/19 08:54 Dose: 10 meq Simvastatin (Zocor) 20 mg PO HS [facility]; Protocol Stop: 08/23/19 20:59 Last Admin: 06/30/19 20:22 Dose: 20 mg Sodium Phosphate (Fleet Enema) 135 ml RC PRN PRN PRN Reason: if Dulcolax ineffective Stop: 08/23/19 15:30 Zolpidem Tartrate (Ambien) 5 mg PO HS PRN PRN Reason: Insomnia Stop: 08/22/19 23:48 Last Admin: 06/30/19 20:22 Dose: 5 mg General: demented HEENT: NC/AT, PERRLA Neck: Supple, No JVD Lungs: CTAB Cardiovascular: RRR, Normal S1, Normal S2, with murmur Abdomen: soft, globular, positive bowel sound Extremities: excoriation Neurological: no change Internal Medicine Assmt/Plan - Assessment Assessment: ASSESSMENT AND PLAN: Coronary artery disease, history of congestive heart failure, status post coronary artery bypass graft, chronic obstructive pulmonary disease, dementia, gastroesophageal disorder, hypertension, hypercholesterolemia, history of diabetes. - Plan Plan: plan: cont on diuretics monitor lytes, will correct as needed cont on proton pump inhibitor cpm ondina rn Nutritional Asmnt/Malnutr-PDOC - Dietary Evaluation Malnutrition Findings (Please click <Entered> for more info): Nutritional Asmnt/Malnutrition Start: 06/25/19 10: 36 Text: Status: Complete Freq: Protocol: Document 06/25/19 10:36 [email or web address] (Rec: 06/25/19 10:42 MMULHERN MARIO- FNS1) Nutritional Asmnt/Malnutrition Patient General Information Nutritional Screening Moderate Risk Diagnosis Psychosis Pertinent Medical Hx/Surgical Hx Major depression Ds, dementia, HTN, hyperlipidemia, [place], CAD, CHF, COPD, anemia, ulcerative colitis unspecified rectal bleeding, muscle weakness, difficulty walking, left hand weakness, hx CABG Subjective Information Patient was admitted from [facility] for evaluation related to increased depression, withdrawn, refusal of treatment and care, verbally agressive to staff. Tolerating current diet with adequate intake. Patient asleep in bed at time of visit. Current Diet Order/ Nutrition Support Mechanical soft, 2gm Sodium, Chopped Patient / S.O Not Indicated Pertinent Medications maalox, dulcolax, colace, lasix, glucagon, humalog, MOM, Theragran, Vitamin B3, protonix, klor con, fleet enema Pertinent Labs 06/23 glucose 193 Nutritional Hx/Data Height 1.78 m Height (Calculated Centimeters) 177.8 Current Weight (lbs) 113.398 kg Weight (Calculated Kilograms) 113.4 Weight (Calculated Grams) 619215.1 [place] Body Weight 166 % [place] Body Weight 150 Body Mass Index (BMI) 35.9 Recent Weight Change No Weight Status Obese GI Symptoms GI Symptoms None Last BM 06/24 x 1 Difficult in: None Food Allergies No Cultural/Ethnic/Shinto Belief none indicated Usual diet at home unknown Skin Integrity/Comment: area of concern, dry scabs bilateral LE, Mickey 16 Current %PO Good (75-100%) Estimated Nutritional Goals BEE in Kcals: Adj wt of IBW Calories/Kcals/Kg Adj BW 85kg Kcals Calculated ~4912-5306 kcal/day (25-30 kcal/kg) Protein: Adj wt of IBW Protein g/k-1.2 gm/kg Protein Calculated ~85-100gm/day Fluid: ml ~9030-5156 ml/day Nutritional Problem No current Nutrition Prob Problem No nutrition diagnosis at this time Intervention/Recommendation Comments 1. Continue current diet as tolerated by patient. Expected Outcomes/Goals Expected Outcomes/Goals Oral intake >75% of meals, weight stable or trend toward IBW, nutrition related labs WNL F/U LR 07/02
--- NOTE | 2019-07-01 21:53 | Progress Notes ---
DATE: PSYCHIATRIC PROGRESS NOTE SUBJECTIVE: Staff was spoken to. The patient is interviewed. Mood is noted to be irritable. Affect is constricted. Insight and judgment at this time are noted to be still impaired. Coping skills are noted to be very poor. The patient is isolative and withdrawn. ASSESSMENT: The patient is still depressed. PLAN: To continue the patient with the Wellbutrin. I encouraged the patient to verbalize the concerns rather than to act out. [facility]# [id number]
[2019-07-02] MEDS: INSULIN LISPRO SLIDING SCALE 100 UNITS/ML UNIT SUBQ SCH ×4 (06:43→22:09)
[2019-07-02] MEDS: Multivitamin Tab PO SCH (09:29)
[2019-07-02] MEDS: Potassium Chloride 10 mEq ER Tab PO SCH (09:30)
[2019-07-02] MEDS: Aspirin 81mg Chewable Tab PO SCH (09:31)
[2019-07-02] MEDS: Pantoprazole 40 mg/Packet PO SCH (09:32)
--- NOTE | 2019-07-02 11:51 | Internal Medicine Prog Note ---
Internal Medicine Subjective - Subjective Service Date: 07/02/19 Patient is:: awake, verbal, interactive Per staff patient has:: no adverse event, no episodes of fall, tolerating meds Internal Medicine Objective - Results Recent Labs: Laboratory Last Values POC Glucose 180 MG/DL (70 - 105) H 07/01/19 19:37 - Physical Exam Vitals and I&O: Vital Signs Temp 97.0 F 07/02/19 06:18 Pulse 71 07/02/19 06:18 Resp 19 07/02/19 08:00 BP 122/65 07/02/19 09:32 Pulse Ox 95 07/02/19 06:18 Intake & Output 07/01/19 07/02/19 07/02/19 18:59 06:59 18:59 Intake Total 180 Balance 180 Intake: Oral 180 Other: # Voids 2 # Bowel Movements 0 Active Medications: Current Medications Acetaminophen (Tylenol) 650 mg PO Q4H PRN PRN Reason: Pain (Mild 1-3) Stop: 08/23/19 11:02 Acetaminophen (Tylenol Extra Strength) 500 mg PO Q6HR PRN PRN Reason: FEVER T ABOVE 100.4F Stop: 08/23/19 15:30 Al Hydrox/Mg Hydrox/Simethicone (Maalox) 30 ml PO Q4HR PRN PRN Reason: GI DISTRESS Stop: 08/22/19 23:48 Aspirin (Aspirin Chewable) 81 mg PO DAILY [facility] Stop: 08/24/19 08:59 Last Admin: 07/02/19 09:31 Dose: 81 mg Bisacodyl (Dulcolax 10 Mg Supp) 10 mg RC DAILY PRN PRN Reason: IF MOM INEFFECTIVE Stop: 08/23/19 15:30 Bupropion HCl (Wellbutrin Sr) 150 mg PO DAILY [facility]; Protocol Stop: 08/25/19 08:59 Last Admin: 07/02/19 09:32 Dose: 150 mg Dextrose (Glutose 40%) 18.75 gm PO PRN PRN PRN Reason: Blood Glucose less than 70 Stop: 08/23/19 15:30 Docusate Sodium (Colace) 200 mg PO DAILY [facility] Stop: 08/24/19 08:59 Last Admin: 07/02/19 09:29 Dose: 200 mg Furosemide (Lasix) 40 mg PO DAILY [facility] Stop: 08/24/19 08:59 Last Admin: 07/02/19 09:32 Dose: 40 mg Glucagon (Glucagen) 1 mg IM PRN PRN PRN Reason: Blood Glucose less than 70 Stop: 08/23/19 15:30 Insulin Human Lispro (Humalog Insulin Sliding Scale) 0 units SUBQ ACHS [facility]; Protocol Stop: 08/23/19 16:29 Last Admin: 07/02/19 06:43 Dose: Not Given Lorazepam (Ativan) 0.5 mg PO Q4HR PRN; Protocol PRN Reason: Agitation Stop: 07/23/19 23:48 Magnesium Hydroxide (Milk Of Magnesia) 30 ml PO DAILY PRN PRN Reason: Constipation Stop: 08/23/19 15:30 Multivitamins/Vitamin C (Theragran) 1 tab PO DAILY [facility] Stop: 08/24/19 08:59 Last Admin: 07/02/19 09:29 Dose: 1 tab Niacin (Vitamin B3) 1,000 mg PO QAM [facility] Stop: 08/24/19 08:59 Last Admin: 07/02/19 09:31 Dose: 1,000 mg Nitroglycerin (Nitrostat) 0.4 mg SL Q5MIN PRN PRN Reason: Chest Pain Stop: 08/23/19 15:30 Pantoprazole Sodium (Protonix) 40 mg PO DAILY [facility] Stop: 08/24/19 08:59 Last Admin: 07/02/19 09:32 Dose: 40 mg Potassium Chloride (Klor-Con) 10 meq PO DAILY [facility] Stop: 08/24/19 08:59 Last Admin: 07/02/19 09:30 Dose: 10 meq Simvastatin (Zocor) 20 mg PO HS [facility]; Protocol Stop: 08/23/19 20:59 Last Admin: 07/01/19 20:55 Dose: 20 mg Sodium Phosphate (Fleet Enema) 135 ml RC PRN PRN PRN Reason: if Dulcolax ineffective Stop: 08/23/19 15:30 Zolpidem Tartrate (Ambien) 5 mg PO HS PRN PRN Reason: Insomnia Stop: 08/22/19 23:48 Last Admin: 07/01/19 20:55 Dose: 5 mg General: demented HEENT: NC/AT, PERRLA Neck: Supple, No JVD Lungs: CTAB Cardiovascular: RRR, Normal S1, Normal S2, with murmur Abdomen: soft, globular, positive bowel sound Extremities: excoriation Neurological: no change Internal Medicine Assmt/Plan - Assessment Assessment: ASSESSMENT AND PLAN: Coronary artery disease, history of congestive heart failure, status post coronary artery bypass graft, chronic obstructive pulmonary disease, dementia, gastroesophageal disorder, hypertension, hypercholesterolemia, history of diabetes. - Plan Plan: cont on diuretics monitor lytes, will correct as needed cont on proton pump inhibitor cpm ondina rn Nutritional Asmnt/Malnutr-PDOC - Dietary Evaluation Malnutrition Findings (Please click <Entered> for more info): Nutritional Asmnt/Malnutrition Start: 06/25/19 10: 36 Text: Status: Complete Freq: Protocol: Document 06/25/19 10:36 [email or web address] (Rec: 06/25/19 10:42 MMULHERN MARIO- FNS1) Nutritional Asmnt/Malnutrition Patient General Information Nutritional Screening Moderate Risk Diagnosis Psychosis Pertinent Medical Hx/Surgical Hx Major depression Ds, dementia, HTN, hyperlipidemia, [place], CAD, CHF, COPD, anemia, ulcerative colitis unspecified rectal bleeding, muscle weakness, difficulty walking, left hand weakness, hx CABG Subjective Information Patient was admitted from [facility] for evaluation related to increased depression, withdrawn, refusal of treatment and care, verbally agressive to staff. Tolerating current diet with adequate intake. Patient asleep in bed at time of visit. Current Diet Order/ Nutrition Support Mechanical soft, 2gm Sodium, Chopped Patient / S.O Not Indicated Pertinent Medications maalox, dulcolax, colace, lasix, glucagon, humalog, MOM, Theragran, Vitamin B3, protonix, klor con, fleet enema Pertinent Labs 06/23 glucose 193 Nutritional Hx/Data Height 5 ft 10 in Height (Calculated Centimeters) 177.8 Current Weight (lbs) 250 lb Weight (Calculated Kilograms) 113.4 Weight (Calculated Grams) 955125.1 [place] Body Weight 166 % [place] Body Weight 150 Body Mass Index (BMI) 35.9 Recent Weight Change No Weight Status Obese GI Symptoms GI Symptoms None Last BM 06/24 x 1 Difficult in: None Food Allergies No Cultural/Ethnic/Hinduism Belief none indicated Usual diet at home unknown Skin Integrity/Comment: area of concern, dry scabs bilateral LE, Mickey 16 Current %PO Good (75-100%) Estimated Nutritional Goals BEE in Kcals: Adj wt of IBW Calories/Kcals/Kg Adj BW 85kg Kcals Calculated ~2913-6445 kcal/day (25-30 kcal/kg) Protein: Adj wt of IBW Protein g/k-1.2 gm/kg Protein Calculated ~85-100gm/day Fluid: ml ~3611-0516 ml/day Nutritional Problem No current Nutrition Prob Problem No nutrition diagnosis at this time Intervention/Recommendation Comments 1. Continue current diet as tolerated by patient. Expected Outcomes/Goals Expected Outcomes/Goals Oral intake >75% of meals, weight stable or trend toward IBW, nutrition related labs WNL F/U LR 07/02
--- NOTE | 2019-07-02 14:24 | Progress Notes ---
DATE: 07/02/2019 PSYCHIATRIC PROGRESS NOTE SUBJECTIVE: Staff was spoken to. The patient is interviewed. Mood is noted to be irritable. Affect is constricted. The patient is isolative and withdrawn. The patient is currently on Wellbutrin and has been able to tolerate the medications. No side effects to the medications are noted. ASSESSMENT: The patient is still depressed. PLAN: To continue the patient with the supportive therapy and followup. JOB# [id number]
--- NOTE | 2019-07-02 18:18 | Progress Notes ---
DATE: 07/01/2019 PSYCHOLOGY PROGRESS NOTE SUBJECTIVE: The patient is seen and is interviewed. Case is discussed with staff. The patient is lying down in bed. The patient presents as dismissive this visit and is only responding to the clinical questions in a yes or no format. The patient continues to be withdrawn. He admits that he is still depressed. OBJECTIVE: Mood is depressed. Affect is constricted. Thought process is depressogenic and seems to be superficial. The patient denied any hallucinations or delusions. The patient's behavior is withdrawn. He continues to isolate and refuses to get out of bed. ASSESSMENT: The patient continues to be depressed. The patient is compliant with his medication. PLAN: We provided remotivation for the patient to get out of bed and to participate in milieu therapy. We provided insight oriented therapy along with coping strategies for phase of life issues to reduce the patient's depression. The patient is continued on Wellbutrin according to the attending psychiatrist. We encouraged the patient to disclose more information about his inner experience so that we may be able to provide more supportive therapeutic interventions to help him cope and reduce his depression. We will follow up in 2-3 days to continue the present treatment if the patient remains on the unit and is able to demonstrate the capacity to benefit from Psychology Services. JOB# [id number] JER
[2019-07-03] MEDS: INSULIN LISPRO SLIDING SCALE 100 UNITS/ML UNIT SUBQ SCH ×4 (06:44→21:15)
[2019-07-03] MEDS: Aspirin 81mg Chewable Tab PO SCH (09:33)
[2019-07-03] MEDS: Multivitamin Tab PO SCH (09:34)
[2019-07-03] MEDS: Potassium Chloride 10 mEq ER Tab PO SCH (09:34)
[2019-07-03] MEDS: Pantoprazole 40 mg/Packet PO SCH (09:34)
--- NOTE | 2019-07-03 13:09 | Internal Medicine Prog Note ---
Internal Medicine Subjective - Subjective Service Date: 07/03/19 Patient is:: awake, verbal, interactive Per staff patient has:: no adverse event, no episodes of fall, tolerating meds Internal Medicine Objective - Results Recent Labs: Laboratory Last Values POC Glucose 217 MG/DL (70 - 105) H 07/03/19 11:46 - Physical Exam Vitals and I&O: Vital Signs Temp 97.8 F 07/03/19 06:56 Pulse 77 07/03/19 08:00 Resp 20 07/03/19 08:00 BP 122/61 07/03/19 09:33 Pulse Ox 97 07/03/19 06:56 Intake & Output 07/02/19 07/03/19 07/03/19 18:59 06:59 18:59 Intake Total 1200 240 Balance 1200 240 Intake: Oral 1200 240 Other: # Voids 4 1 # Bowel Movements 0 Active Medications: Current Medications Acetaminophen (Tylenol) 650 mg PO Q4H PRN PRN Reason: Pain (Mild 1-3) Stop: 08/23/19 11:02 Acetaminophen (Tylenol Extra Strength) 500 mg PO Q6HR PRN PRN Reason: FEVER T ABOVE 100.4F Stop: 08/23/19 15:30 Al Hydrox/Mg Hydrox/Simethicone (Maalox) 30 ml PO Q4HR PRN PRN Reason: GI DISTRESS Stop: 08/22/19 23:48 Aspirin (Aspirin Chewable) 81 mg PO DAILY [facility] Stop: 08/24/19 08:59 Last Admin: 07/03/19 09:33 Dose: 81 mg Bisacodyl (Dulcolax 10 Mg Supp) 10 mg RC DAILY PRN PRN Reason: IF MOM INEFFECTIVE Stop: 08/23/19 15:30 Bupropion HCl (Wellbutrin Sr) 150 mg PO DAILY [facility]; Protocol Stop: 08/25/19 08:59 Last Admin: 07/03/19 09:33 Dose: 150 mg Dextrose (Glutose 40%) 18.75 gm PO PRN PRN PRN Reason: Blood Glucose less than 70 Stop: 08/23/19 15:30 Docusate Sodium (Colace) 200 mg PO DAILY [facility] Stop: 08/24/19 08:59 Last Admin: 07/03/19 09:33 Dose: 200 mg Furosemide (Lasix) 40 mg PO DAILY [facility] Stop: 08/24/19 08:59 Last Admin: 07/03/19 09:33 Dose: 40 mg Glucagon (Glucagen) 1 mg IM PRN PRN PRN Reason: Blood Glucose less than 70 Stop: 08/23/19 15:30 Insulin Human Lispro (Humalog Insulin Sliding Scale) 0 units SUBQ ACHS [facility]; Protocol Stop: 08/23/19 16:29 Last Admin: 07/03/19 12:02 Dose: 2 units Lorazepam (Ativan) 0.5 mg PO Q4HR PRN; Protocol PRN Reason: Agitation Stop: 07/23/19 23:48 Magnesium Hydroxide (Milk Of Magnesia) 30 ml PO DAILY PRN PRN Reason: Constipation Stop: 08/23/19 15:30 Multivitamins/Vitamin C (Theragran) 1 tab PO DAILY [facility] Stop: 08/24/19 08:59 Last Admin: 07/03/19 09:34 Dose: 1 tab Niacin (Vitamin B3) 1,000 mg PO QAM [facility] Stop: 08/24/19 08:59 Last Admin: 07/03/19 09:34 Dose: 1,000 mg Nitroglycerin (Nitrostat) 0.4 mg SL Q5MIN PRN PRN Reason: Chest Pain Stop: 08/23/19 15:30 Pantoprazole Sodium (Protonix) 40 mg PO DAILY [facility] Stop: 08/24/19 08:59 Last Admin: 07/03/19 09:34 Dose: 40 mg Potassium Chloride (Klor-Con) 10 meq PO DAILY [facility] Stop: 08/24/19 08:59 Last Admin: 07/03/19 09:34 Dose: 10 meq Simvastatin (Zocor) 20 mg PO HS [facility]; Protocol Stop: 08/23/19 20:59 Last Admin: 07/02/19 21:12 Dose: 20 mg Sodium Phosphate (Fleet Enema) 135 ml RC PRN PRN PRN Reason: if Dulcolax ineffective Stop: 08/23/19 15:30 Zolpidem Tartrate (Ambien) 5 mg PO HS PRN PRN Reason: Insomnia Stop: 08/22/19 23:48 Last Admin: 07/02/19 21:12 Dose: 5 mg General: demented HEENT: NC/AT, PERRLA Neck: Supple, No JVD Lungs: CTAB Cardiovascular: RRR, Normal S1, Normal S2, with murmur Abdomen: soft, globular, positive bowel sound Extremities: excoriation Neurological: no change Internal Medicine Assmt/Plan - Assessment Assessment: ASSESSMENT AND PLAN: Coronary artery disease, history of congestive heart failure, status post coronary artery bypass graft, chronic obstructive pulmonary disease, dementia, gastroesophageal disorder, hypertension, hypercholesterolemia, history of diabetes. - Plan Plan: cont on diuretics monitor lytes, will correct as needed cont on proton pump inhibitor cpm ondina rn Nutritional Asmnt/Malnutr-PDOC - Dietary Evaluation Malnutrition Findings (Please click <Entered> for more info): Nutritional Asmnt/Malnutrition Start: 06/25/19 10: 36 Text: Status: Complete Freq: Protocol: Document 06/25/19 10:36 [id number] (Rec: 06/25/19 10:42 MMULHERN MARIO- FNS1) Nutritional Asmnt/Malnutrition Patient General Information Nutritional Screening Moderate Risk Diagnosis Psychosis Pertinent Medical Hx/Surgical Hx Major depression Ds, dementia, HTN, hyperlipidemia, [place], CAD, CHF, COPD, anemia, ulcerative colitis unspecified rectal bleeding, muscle weakness, difficulty walking, left hand weakness, hx CABG Subjective Information Patient was admitted from [facility] for evaluation related to increased depression, withdrawn, refusal of treatment and care, verbally agressive to staff. Tolerating current diet with adequate intake. Patient asleep in bed at time of visit. Current Diet Order/ Nutrition Support Mechanical soft, 2gm Sodium, Chopped Patient / S.O Not Indicated Pertinent Medications maalox, dulcolax, colace, lasix, glucagon, humalog, MOM, Theragran, Vitamin B3, protonix, klor con, fleet enema Pertinent Labs 06/23 glucose 193 Nutritional Hx/Data Height 5 ft 10 in Height (Calculated Centimeters) 177.8 Current Weight (lbs) 250 lb Weight (Calculated Kilograms) 113.4 Weight (Calculated Grams) 154904.1 [place] Body Weight 166 % [place] Body Weight 150 Body Mass Index (BMI) 35.9 Recent Weight Change No Weight Status Obese GI Symptoms GI Symptoms None Last BM 06/24 x 1 Difficult in: None Food Allergies No Cultural/Ethnic/Sikhism Belief none indicated Usual diet at home unknown Skin Integrity/Comment: area of concern, dry scabs bilateral Mickey LEIGH 16 Current %PO Good (75-100%) Estimated Nutritional Goals BEE in Kcals: Adj wt of IBW Calories/Kcals/Kg Adj BW 85kg Kcals Calculated ~9444-8321 kcal/day (25-30 kcal/kg) Protein: Adj wt of IBW Protein g/k-1.2 gm/kg Protein Calculated ~85-100gm/day Fluid: ml ~1641-4811 ml/day Nutritional Problem No current Nutrition Prob Problem No nutrition diagnosis at this time Intervention/Recommendation Comments 1. Continue current diet as tolerated by patient. Expected Outcomes/Goals Expected Outcomes/Goals Oral intake >75% of meals, weight stable or trend toward IBW, nutrition related labs WNL F/U LR 07/02
--- NOTE | 2019-07-03 17:55 | Progress Notes ---
DATE: 07/03/2019 PSYCHIATRIC PROGRESS NOTE SUBJECTIVE: Staff was spoken to. The patient is interviewed. Mood is noted to be depressed. The patient is isolative and withdrawn today. The patient is currently on Wellbutrin and has been able to tolerate the medications. No side effects to the medications are noted. A total care patient and is not able to help himself. ASSESSMENT: The patient is still depressed. PLAN: To continue the patient with the supportive therapy and followup. JOB# [id number]
[2019-07-04] MEDS: INSULIN LISPRO SLIDING SCALE 100 UNITS/ML UNIT SUBQ SCH ×4 (06:32→20:51)
[2019-07-04] MEDS: Pantoprazole 40 mg/Packet PO SCH (08:28)
[2019-07-04] MEDS: Potassium Chloride 10 mEq ER Tab PO SCH (08:29)
[2019-07-04] MEDS: Aspirin 81mg Chewable Tab PO SCH (08:29)
[2019-07-04] MEDS: Multivitamin Tab PO SCH (08:30)
--- NOTE | 2019-07-04 13:01 | Internal Medicine Prog Note ---
Internal Medicine Subjective - Subjective Patient seen and examined:: with staff, chart reviewed Patient is:: awake, verbal, interactive Per staff patient has:: no adverse event, no episodes of fall, tolerating meds Internal Medicine Objective - Results Recent Labs: Laboratory Last Values POC Glucose 178 MG/DL (70 - 105) H 07/03/19 20:13 - Physical Exam Vitals and I&O: Vital Signs Temp 97.3 F 07/04/19 06:31 Pulse 59 07/04/19 06:31 Resp 18 07/04/19 06:31 BP 134/66 07/04/19 08:29 Pulse Ox 95 07/04/19 06:31 Intake & Output 07/03/19 07/04/19 07/04/19 18:59 06:59 18:59 Intake Total 800 120 Balance 800 120 Intake: Oral 800 120 Other: # Voids 4 3 # Bowel Movements 0 Active Medications: Current Medications Acetaminophen (Tylenol) 650 mg PO Q4H PRN PRN Reason: Pain (Mild 1-3) Stop: 08/23/19 11:02 Acetaminophen (Tylenol Extra Strength) 500 mg PO Q6HR PRN PRN Reason: FEVER T ABOVE 100.4F Stop: 08/23/19 15:30 Al Hydrox/Mg Hydrox/Simethicone (Maalox) 30 ml PO Q4HR PRN PRN Reason: GI DISTRESS Stop: 08/22/19 23:48 Aspirin (Aspirin Chewable) 81 mg PO DAILY [facility] Stop: 08/24/19 08:59 Last Admin: 07/04/19 08:29 Dose: 81 mg Bisacodyl (Dulcolax 10 Mg Supp) 10 mg RC DAILY PRN PRN Reason: IF MOM INEFFECTIVE Stop: 08/23/19 15:30 Bupropion HCl (Wellbutrin Sr) 150 mg PO DAILY [facility]; Protocol Stop: 08/25/19 08:59 Last Admin: 07/04/19 08:29 Dose: 150 mg Dextrose (Glutose 40%) 18.75 gm PO PRN PRN PRN Reason: Blood Glucose less than 70 Stop: 08/23/19 15:30 Docusate Sodium (Colace) 200 mg PO DAILY [facility] Stop: 08/24/19 08:59 Last Admin: 07/04/19 08:29 Dose: 200 mg Furosemide (Lasix) 40 mg PO DAILY [facility] Stop: 08/24/19 08:59 Last Admin: 07/04/19 08:29 Dose: 40 mg Glucagon (Glucagen) 1 mg IM PRN PRN PRN Reason: Blood Glucose less than 70 Stop: 08/23/19 15:30 Insulin Human Lispro (Humalog Insulin Sliding Scale) 0 units SUBQ ACHS [facility]; Protocol Stop: 08/23/19 16:29 Last Admin: 07/04/19 11:27 Dose: Not Given Lorazepam (Ativan) 0.5 mg PO Q4HR PRN; Protocol PRN Reason: Agitation Stop: 07/23/19 23:48 Magnesium Hydroxide (Milk Of Magnesia) 30 ml PO DAILY PRN PRN Reason: Constipation Stop: 08/23/19 15:30 Multivitamins/Vitamin C (Theragran) 1 tab PO DAILY [facility] Stop: 08/24/19 08:59 Last Admin: 07/04/19 08:30 Dose: 1 tab Niacin (Vitamin B3) 1,000 mg PO QAM [facility] Stop: 08/24/19 08:59 Last Admin: 07/04/19 08:29 Dose: 1,000 mg Nitroglycerin (Nitrostat) 0.4 mg SL Q5MIN PRN PRN Reason: Chest Pain Stop: 08/23/19 15:30 Pantoprazole Sodium (Protonix) 40 mg PO DAILY [facility] Stop: 08/24/19 08:59 Last Admin: 07/04/19 08:28 Dose: 40 mg Potassium Chloride (Klor-Con) 10 meq PO DAILY [facility] Stop: 08/24/19 08:59 Last Admin: 07/04/19 08:29 Dose: 10 meq Simvastatin (Zocor) 20 mg PO HS [facility]; Protocol Stop: 08/23/19 20:59 Last Admin: 07/03/19 21:16 Dose: 20 mg Sodium Phosphate (Fleet Enema) 135 ml RC PRN PRN PRN Reason: if Dulcolax ineffective Stop: 08/23/19 15:30 Zolpidem Tartrate (Ambien) 5 mg PO HS PRN PRN Reason: Insomnia Stop: 08/22/19 23:48 Last Admin: 07/02/19 21:12 Dose: 5 mg General: demented HEENT: NC/AT, PERRLA Neck: Supple, No JVD Lungs: CTAB Cardiovascular: RRR, Normal S1, Normal S2, with murmur Abdomen: soft, globular, positive bowel sound Extremities: excoriation Neurological: no change Internal Medicine Assmt/Plan - Assessment Assessment: ASSESSMENT AND PLAN: Coronary artery disease, history of congestive heart failure, status post coronary artery bypass graft, chronic obstructive pulmonary disease, dementia, gastroesophageal disorder, hypertension, hypercholesterolemia, history of diabetes. - Plan Plan: plan: cont on diuretics monitor lytes, will correct as needed cont on proton pump inhibitor cpm ondina rn Nutritional Asmnt/Malnutr-PDOC - Dietary Evaluation Malnutrition Findings (Please click <Entered> for more info): Nutritional Asmnt/Malnutrition Start: 06/25/19 10: 36 Text: Status: Complete Freq: Protocol: Document 06/25/19 10:36 [id number] (Rec: 06/25/19 10:42 MMULHERN MARIO- FNS1) Nutritional Asmnt/Malnutrition Patient General Information Nutritional Screening Moderate Risk Diagnosis Psychosis Pertinent Medical Hx/Surgical Hx Major depression Ds, dementia, HTN, hyperlipidemia, [place], CAD, CHF, COPD, anemia, ulcerative colitis unspecified rectal bleeding, muscle weakness, difficulty walking, left hand weakness, hx CABG Subjective Information Patient was admitted from [facility] for evaluation related to increased depression, withdrawn, refusal of treatment and care, verbally agressive to staff. Tolerating current diet with adequate intake. Patient asleep in bed at time of visit. Current Diet Order/ Nutrition Support Mechanical soft, 2gm Sodium, Chopped Patient / S.O Not Indicated Pertinent Medications maalox, dulcolax, colace, lasix, glucagon, humalog, MOM, Theragran, Vitamin B3, protonix, klor con, fleet enema Pertinent Labs 06/23 glucose 193 Nutritional Hx/Data Height 1.78 m Height (Calculated Centimeters) 177.8 Current Weight (lbs) 113.398 kg Weight (Calculated Kilograms) 113.4 Weight (Calculated Grams) 206117.1 [place] Body Weight 166 % [place] Body Weight 150 Body Mass Index (BMI) 35.9 Recent Weight Change No Weight Status Obese GI Symptoms GI Symptoms None Last BM 06/24 x 1 Difficult in: None Food Allergies No Cultural/Ethnic/Presybeterian Belief none indicated Usual diet at home unknown Skin Integrity/Comment: area of concern, dry scabs bilateral Mickey LEIGH 16 Current %PO Good (75-100%) Estimated Nutritional Goals BEE in Kcals: Adj wt of IBW Calories/Kcals/Kg Adj BW 85kg Kcals Calculated ~6731-0712 kcal/day (25-30 kcal/kg) Protein: Adj wt of IBW Protein g/k-1.2 gm/kg Protein Calculated ~85-100gm/day Fluid: ml ~2880-6792 ml/day Nutritional Problem No current Nutrition Prob Problem No nutrition diagnosis at this time Intervention/Recommendation Comments 1. Continue current diet as tolerated by patient. Expected Outcomes/Goals Expected Outcomes/Goals Oral intake >75% of meals, weight stable or trend toward IBW, nutrition related labs WNL F/U LR 07/02
--- NOTE | 2019-07-04 21:00 | Progress Notes ---
DATE: 07/04/2019 PSYCHIATRIC PROGRESS NOTE SUBJECTIVE: Staff was spoken to. The patient is interviewed. Mood is noted to be less irritable. Affect is appropriate. The patient's insight and judgment are noted to be improving. Impulse control seems to be fair at this time. No major side effects to the medications are noted. The patient is willing to comply with the treatment. The patient has been currently on some Wellbutrin and has been able to tolerate the medication. ASSESSMENT: The patient's depression is resolving. PLAN: To continue the patient with the current medications and followup. JOB# [id number]
[2019-07-05] MEDS: INSULIN LISPRO SLIDING SCALE 100 UNITS/ML UNIT SUBQ SCH ×2 (06:40→11:10)
[2019-07-05] MEDS: Aspirin 81mg Chewable Tab PO SCH (08:43)
[2019-07-05] MEDS: Pantoprazole 40 mg/Packet PO SCH (08:43)
[2019-07-05] MEDS: Potassium Chloride 10 mEq ER Tab PO SCH (08:43)
[2019-07-05] MEDS: Multivitamin Tab PO SCH (08:44)
--- NOTE | 2019-07-05 10:50 | Progress Notes ---
DATE: 07/04/2019 PSYCHOLOGY PROGRESS NOTE SUBJECTIVE: The patient is seen in his room. The patient is in bed. The patient states that he cannot get out of bed and cannot walk and this frustrates him. The patient seems to be less irritable. However, his depression persists. The patient is compliant with his medication. According to the staff, the patient continues to state that he does not feel any changes with respect to his depression. However, the staff indicates that perhaps depression is resolving. OBJECTIVE: Mood is dysphoric. Affect is mood congruent. Thought process shows to be impoverished and superficial with poor insight. The patient denied any hallucinations or delusions. The patient has not gotten out of bed and participated in the milieu therapy. ASSESSMENT: The patient's depression persists; however, there may be some improvement. PLAN: We continued to provide insight oriented therapy and coping strategies for phase of life issues, which the patient has identified as the precipitating factors for the worsening of his mood and increased depression. We will continue this type of therapeutic intervention and review coping strategies for phase of life issues. We will follow up in 2-3 days if the patient remains admitted on the unit. JOB# [id number] JER
--- NOTE | 2019-07-05 12:08 | Internal Medicine Prog Note ---
Internal Medicine Subjective - Subjective Patient seen and examined:: with staff, chart reviewed Patient is:: awake, verbal, interactive Per staff patient has:: no adverse event, no episodes of fall, tolerating meds Internal Medicine Objective - Results Recent Labs: Laboratory Last Values POC Glucose 156 MG/DL (70 - 105) H 07/05/19 06:26 - Physical Exam Vitals and I&O: Vital Signs Temp 97.0 F 07/05/19 06:07 Pulse 66 07/05/19 06:07 Resp 18 07/05/19 06:07 BP 143/64 07/05/19 08:44 Pulse Ox 94 07/05/19 06:07 Intake & Output 07/04/19 07/05/19 07/05/19 18:59 06:59 18:59 Intake Total 1500 240 Balance 1500 240 Intake: Oral 1500 240 Other: # Voids 4 2 # Bowel Movements 0 Active Medications: Current Medications Acetaminophen (Tylenol) 650 mg PO Q4H PRN PRN Reason: Pain (Mild 1-3) Stop: 08/23/19 11:02 Acetaminophen (Tylenol Extra Strength) 500 mg PO Q6HR PRN PRN Reason: FEVER T ABOVE 100.4F Stop: 08/23/19 15:30 Al Hydrox/Mg Hydrox/Simethicone (Maalox) 30 ml PO Q4HR PRN PRN Reason: GI DISTRESS Stop: 08/22/19 23:48 Aspirin (Aspirin Chewable) 81 mg PO DAILY [facility] Stop: 08/24/19 08:59 Last Admin: 07/05/19 08:43 Dose: 81 mg Bisacodyl (Dulcolax 10 Mg Supp) 10 mg RC DAILY PRN PRN Reason: IF MOM INEFFECTIVE Stop: 08/23/19 15:30 Bupropion HCl (Wellbutrin Sr) 150 mg PO DAILY [facility]; Protocol Stop: 08/25/19 08:59 Last Admin: 07/05/19 08:43 Dose: 150 mg Dextrose (Glutose 40%) 18.75 gm PO PRN PRN PRN Reason: Blood Glucose less than 70 Stop: 08/23/19 15:30 Docusate Sodium (Colace) 200 mg PO DAILY [facility] Stop: 08/24/19 08:59 Last Admin: 07/05/19 08:45 Dose: 200 mg Furosemide (Lasix) 40 mg PO DAILY [facility] Stop: 08/24/19 08:59 Last Admin: 07/05/19 08:44 Dose: 40 mg Glucagon (Glucagen) 1 mg IM PRN PRN PRN Reason: Blood Glucose less than 70 Stop: 08/23/19 15:30 Insulin Human Lispro (Humalog Insulin Sliding Scale) 0 units SUBQ ACHS [facility]; Protocol Stop: 08/23/19 16:29 Last Admin: 07/05/19 11:10 Dose: Not Given Lorazepam (Ativan) 0.5 mg PO Q4HR PRN; Protocol PRN Reason: Agitation Stop: 07/23/19 23:48 Magnesium Hydroxide (Milk Of Magnesia) 30 ml PO DAILY PRN PRN Reason: Constipation Stop: 08/23/19 15:30 Multivitamins/Vitamin C (Theragran) 1 tab PO DAILY [facility] Stop: 08/24/19 08:59 Last Admin: 07/05/19 08:44 Dose: 1 tab Niacin (Vitamin B3) 1,000 mg PO QAM [facility] Stop: 08/24/19 08:59 Last Admin: 07/05/19 08:45 Dose: 1,000 mg Nitroglycerin (Nitrostat) 0.4 mg SL Q5MIN PRN PRN Reason: Chest Pain Stop: 08/23/19 15:30 Pantoprazole Sodium (Protonix) 40 mg PO DAILY [facility] Stop: 08/24/19 08:59 Last Admin: 07/05/19 08:43 Dose: 40 mg Potassium Chloride (Klor-Con) 10 meq PO DAILY [facility] Stop: 08/24/19 08:59 Last Admin: 07/05/19 08:43 Dose: 10 meq Simvastatin (Zocor) 20 mg PO HS [facility]; Protocol Stop: 08/23/19 20:59 Last Admin: 07/04/19 20:52 Dose: 20 mg Sodium Phosphate (Fleet Enema) 135 ml RC PRN PRN PRN Reason: if Dulcolax ineffective Stop: 08/23/19 15:30 Zolpidem Tartrate (Ambien) 5 mg PO HS PRN PRN Reason: Insomnia Stop: 08/22/19 23:48 Last Admin: 07/02/19 21:12 Dose: 5 mg General: demented HEENT: NC/AT, PERRLA Neck: Supple, No JVD Lungs: CTAB Cardiovascular: RRR, Normal S1, Normal S2, with murmur Abdomen: soft, globular, positive bowel sound Extremities: excoriation Neurological: no change Internal Medicine Assmt/Plan - Assessment Assessment: ASSESSMENT AND PLAN: Coronary artery disease, history of congestive heart failure, status post coronary artery bypass graft, chronic obstructive pulmonary disease, dementia, gastroesophageal disorder, hypertension, hypercholesterolemia, history of diabetes. - Plan Plan: plan: cont on diuretics monitor lytes, will correct as needed cont on proton pump inhibitor cpm ondina rn Nutritional Asmnt/Malnutr-PDOC - Dietary Evaluation Malnutrition Findings (Please click <Entered> for more info): Nutritional Asmnt/Malnutrition Start: 06/25/19 10: 36 Text: Status: Complete Freq: Protocol: Document 06/25/19 10:36 [id number] (Rec: 06/25/19 10:42 [email or web address] MARIO- [id number]) Nutritional Asmnt/Malnutrition Patient General Information Nutritional Screening Moderate Risk Diagnosis Psychosis Pertinent Medical Hx/Surgical Hx Major depression Ds, dementia, HTN, hyperlipidemia, DE, CAD, CHF, COPD, anemia, ulcerative colitis unspecified rectal bleeding, muscle weakness, difficulty walking, left hand weakness, hx CABG Subjective Information Patient was admitted from [facility] for evaluation related to increased depression, withdrawn, refusal of treatment and care, verbally agressive to staff. Tolerating current diet with adequate intake. Patient asleep in bed at time of visit. Current Diet Order/ Nutrition Support Mechanical soft, 2gm Sodium, Chopped Patient / S.O Not Indicated Pertinent Medications maalox, dulcolax, colace, lasix, glucagon, humalog, MOM, Theragran, Vitamin B3, protonix, klor con, fleet enema Pertinent Labs 06/23 glucose 193 Nutritional Hx/Data Height 1.78 m Height (Calculated Centimeters) 177.8 Current Weight (lbs) 113.398 kg Weight (Calculated Kilograms) 113.4 Weight (Calculated Grams) 983297.1 [place] Body Weight 166 % [place] Body Weight 150 Body Mass Index (BMI) 35.9 Recent Weight Change No Weight Status Obese GI Symptoms GI Symptoms None Last BM 06/24 x 1 Difficult in: None Food Allergies No Cultural/Ethnic/Rastafari Belief none indicated Usual diet at home unknown Skin Integrity/Comment: area of concern, dry scabs bilateral Mickey LEIGH 16 Current %PO Good (75-100%) Estimated Nutritional Goals BEE in Kcals: Adj wt of IBW Calories/Kcals/Kg Adj BW 85kg Kcals Calculated ~5527-3006 kcal/day (25-30 kcal/kg) Protein: Adj wt of IBW Protein g/k-1.2 gm/kg Protein Calculated ~85-100gm/day Fluid: ml ~7999-4343 ml/day Nutritional Problem No current Nutrition Prob Problem No nutrition diagnosis at this time Intervention/Recommendation Comments 1. Continue current diet as tolerated by patient. Expected Outcomes/Goals Expected Outcomes/Goals Oral intake >75% of meals, weight stable or trend toward IBW, nutrition related labs WNL F/U LR 07/02
--- NOTE | 2019-07-05 18:57 | Discharge Summary ---
DATE OF DISCHARGE: 07/05/2019 IDENTIFYING DATA: The patient is a 79-year-old male admitted here for depression. DIAGNOSES AT THE TIME OF ADMISSION: AXIS I: Dementia of the Alzheimer's type and behavioral changes secondary to it. 1B: Major depressive disorder. AXIS II: None. AXIS III: As per Dr. Anguiano. HISTORY OF DETAILED ILLNESS: Please refer to the 06/24/[address] Stevenson. HOSPITAL COURSE AND RESPONSE TO TREATMENT: The patient has been observed on inpatient unit, provided with supportive psychotherapy. The patient has been started on the Wellbutrin that was gradually increased to ____ mg in the morning and the patient has been closely monitored. On 07/04/2019, the patient's family has been met and they are concerned that the patient is still on antidepressant medications. They do not want the antidepressant medications to be continued and they want the patient to be discharged back to the facility so that they can monitor him. The patient's family has been clearly explained the need for the medication and the patient has been continued on the Wellbutrin. The patient was discharged on 07/05/2019 with recommendation ____ continue treatment on an outpatient basis. MENTAL STATUS EXAMINATION: The patient has been discharged to the [facility] and the patient is going to be followed up by Dr. Stevenson. MENTAL STATUS EXAMINATION: At the time of discharge noted to be stable. The patient is not presenting with any threats to harm self or others and the patient is willing to comply with the treatment. DIAGNOSES AT THE TIME OF DISCHARGE: AXIS I: Major depressive disorder, recurrent and moderate. IB: Dementia of the Alzheimer's type. AXIS II: None. AXIS III: As per Dr. Anguiano. AFTERCARE PLAN: The patient is discharged to [facility] for further followup. JOB# [id number]
== END 2019-07-05 15:00 | DRG 57 ==
LOC: GERO 20:05
PROVIDERS: ADMIT Psychiatry & Neurology Psychiatry; ATTEND Psychiatry & Neurology Psychiatry
DX: G30.9 Alzheimer's disease, unspecified (principal); F02.81 Dementia in other diseases classified elsewhere, unspecified severity, with behavioral disturbance; I11.0 Hypertensive heart disease with heart failure; F32.9 Major depressive disorder, single episode, unspecified; F63.9 Impulse disorder, unspecified; K21.9 Gastro-esophageal reflux disease without esophagitis; E78.5 Hyperlipidemia, unspecified; F15.94 Other stimulant use, unspecified with stimulant-induced mood disorder; F63.89 Other impulse disorders; E66.01 Morbid (severe) obesity due to excess calories; E11.9 Type 2 diabetes mellitus without complications; E78.00 Pure hypercholesterolemia, unspecified; I50.9 Heart failure, unspecified; I25.10 Atherosclerotic heart disease of native coronary artery without angina pectoris; J44.9 Chronic obstructive pulmonary disease, unspecified; Z95.1 Presence of aortocoronary bypass graft; Z79.899 Other long term (current) drug therapy; Z68.35 Body mass index [BMI] 35.0-35.9, adult; Z79.84 Long term (current) use of oral hypoglycemic drugs
CPT/HCPCS: 82948-90; 83036-90; Z7610